=== PATIENT | female | born 1965 | race Two or more races ===

== ENCOUNTER → 2020-09-08 12:22 | Outpatient (BNVA) | payer MEDICAID, SELFPAY | PROVIDERS: PCP Internal Medicine; Visit Provider Internal Medicine Cardiovascular Disease | DX: I10 Essential (primary) hypertension (principal); R07.9 Chest pain, unspecified; R00.2 Palpitations | CPT/HCPCS: 99212 ==

== ENCOUNTER → 2021-02-28 09:22 | Outpatient (BNVA) | payer MEDICAID, SELFPAY | PROVIDERS: PCP Internal Medicine; Referring Provider Internal Medicine; Visit Provider Internal Medicine Cardiovascular Disease | DX: I10 Essential (primary) hypertension (principal); R00.2 Palpitations; Z79.899 Other long term (current) drug therapy | CPT/HCPCS: 99212 ==

== ENCOUNTER 2021-07-09 10:27 | Outpatient (REF) | payer MEDICAID, SELFPAY ==
--- NOTE | ~2021-07-09 | MM_ITS ---
EXAMINATION: MM SCREENING DIGITAL BREAST TOMOSYNTHESIS, BILATERAL CLINICAL INFORMATION: Screening. Asymptomatic. The lifetime risk of breast cancer based on the Tyrer-Cuzick Model is 8%. COMPARISON: Mammography: 05/18/2020, 01/02/2019, 12/18/2018; outside mammography 08/04/2016 ([facility]) TECHNIQUE: Digital breast tomosynthesis is performed in both the craniocaudal and mediolateral oblique views along with computer-aided detection (CAD). Synthesized 2D images are generated from the tomosynthesis. FINDINGS: There are scattered areas of fibroglandular density (ACR BI-RADS breast composition Category b). There are no significant masses, abnormal calcifications, or other abnormalities. Breast tissue composition borders on average fibroglandular. Denser tissue composition is predominantly in the anterior upper outer quadrants. The axilla and skin contours are unremarkable. No significant changes. MM/MM tomosynthesis screening BI IMPRESSION: No mammographic evidence of malignancy. ASSESSMENT: BI-RADS 1: Negative RECOMMENDATION: Routine annual mammography screening. This patient's information was entered into a reminder system with a target due date for their next mammogram.
== END 2021-07-09 10:28 | disposition home or self-care (01) ==
LOC: HO.MAMMO 10:27
PROVIDERS: Visit Provider Internal Medicine
DX: Z12.31 Encounter for screening mammogram for malignant neoplasm of breast (principal)
CPT/HCPCS: 77063; 77067

== ENCOUNTER → 2021-09-05 09:33 | Outpatient (BNVA) | payer MEDICAID, SELFPAY | PROVIDERS: PCP Internal Medicine; Referring Provider Internal Medicine; Visit Provider Internal Medicine Cardiovascular Disease | DX: R00.2 Palpitations (principal); R07.9 Chest pain, unspecified; I10 Essential (primary) hypertension | CPT/HCPCS: 99212 ==

== ENCOUNTER → 2021-09-15 09:22 | Outpatient (BNVA) | payer MEDICAID, SELFPAY | PROVIDERS: PCP Internal Medicine; Referring Provider Internal Medicine; Visit Provider Surgery | DX: K64.4 Residual hemorrhoidal skin tags (principal); K64.8 Other hemorrhoids | CPT/HCPCS: 46600; 99202 ==

== ENCOUNTER 2021-10-21 05:58 | Day surgery (SDC) | payer MEDICAID, SELFPAY ==
[2021-10-17 10:41] VITALS: BMI 26.0
[2021-10-17 12:53] VITALS: BMI 25.4
--- NOTE | 2021-10-20 10:30 | P.CONAN_ITS ---
Documented by User: Zee Shoemaker NP 10/20/21 10:32 HPI - Anesthesia Eval Consult details Narrative: 56yo F for EUA, Hemorrhoidectomy PMFSH Active Problems Active Problems: All Active Problems (Updated 10/17/21 @ 12:52 by Elmira Posadas, RN) Chest pain (Acute) Palpitations (Acute) Hemorrhoids with complication (Acute) Hypertension (Acute) Past Medical History Medical History Cough, unspecified Hemorrhoids with complication Hypertension Family History Family History Father HTN (hypertension) Mother Tachycardia Surgical History Surgical History History of bariatric surgery History of partial hysterectomy History of tubal ligation Social History Social History Are you a primary rn complex care to a significant other at home: No Do you presently have visiting nurse or other home services: No Patient Tobacco Use Status: Former Tobacco user Quit Date: 2019 Tobacco use type: Cigarette Use of substances other than those prescribed or required for medical reasons: No Are you DNR?: No Advance Directives: No Advance Directives Information Provided: Yes Advance Directives on File: No Meds Allergies Allergy/AdvReac Type Severity Reaction Status Date / Time No Known Allergies Allergy Verified 10/17/21 12:53 [No Known Allergies*] Home Medications Medication Instructions Recorded Confirmed Last Taken Type albuterol sulfate 2 puff 09/08/20 10/17/21 Unknown History 90 mcg/actuation INHALATION Q6H PRN aerosol inhaler amitriptyline 25 25 mg PO QAM 09/08/20 10/17/21 Unknown History mg tablet chlorthalidone 50 50 mg PO DAILY 09/08/20 10/17/21 Unknown History mg tablet fluticasone 1 puff 09/08/20 10/17/21 Unknown History propionate 110 INHALATION BID mcg/actuation HFA aerosol inhaler (Flovent HFA) sertraline 50 mg 50 mg PO DAILY 09/08/20 10/17/21 Unknown History tablet witch lea 50 % 1 pad TOPICAL 09/08/20 09/15/21 Unknown History topical pads BID-QID PRN (Preparation H (Witch Lea)) zolpidem 10 mg 10 mg PO BEDTIME 09/08/20 10/17/21 Unknown History tablet PRN amitriptyline 10 10 mg PO BEDTIME 09/15/21 10/17/21 Unknown History mg tablet butalbital-acetam 1 tab PO Q4H PRN 09/15/21 10/17/21 Unknown History inophen-caffeine 50 mg-325 mg-40 mg tablet cholecalciferol 50 mcg PO DAILY 09/15/21 10/17/21 Unknown History (vitamin D3) 50 mcg (2,000 unit) capsule conjugated 0.625 mg PO 09/15/21 10/17/21 Unknown History estrogens 0.625 DAILY mg tablet (Premarin) divalproex 250 mg 500 mg PO BID 09/15/21 10/17/21 Unknown History tablet,extended release 24 hr hydrochlorothiazi 50 mg PO DAILY 09/15/21 10/17/21 Unknown History de 50 mg tablet ibuprofen 800 mg 800 mg PO TID 09/15/21 10/17/21 Unknown History tablet PRN melatonin 5 mg 5 - 10 mg PO 09/15/21 10/17/21 Unknown History tablet BEDTIME PRN polyvinyl alcohol 1 drp OPHTHALMIC 09/15/21 10/17/21 Unknown History 1.4 % eye drops (EYE) TID-QID (Artificial Tears (polyvinyl alcohol)) topiramate 25 mg 25 mg PO DAILY 09/15/21 10/17/21 Unknown History tablet Exam Exam Date and Time: October 20, 2021 1030 Height,Weight and Vital Signs: Height 4 ft 11 in Weight 57.153 kg Assessment and Plan Assessment Anesthesia Assessment: Chart Reviewed Documented by User: Rayne Nieto MD 10/21/21 07:46 [facility] Past Medical History Medical History Cough, unspecified Hemorrhoids with complication Hypertension Family History Family History Father HTN (hypertension) Mother Tachycardia Surgical History Surgical History History of bariatric surgery History of partial hysterectomy History of tubal ligation History of Problems with Anesthesia: No Social History Social History Are you a primary rn complex care to a significant other at home: No Do you presently have visiting nurse or other home services: No Patient Tobacco Use Status: Former Tobacco user Quit Date: 2019 Tobacco use type: Cigarette Use of substances other than those prescribed or required for medical reasons: No Are you DNR?: No Advance Directives: No Advance Directives Information Provided: Yes Advance Directives on File: No Meds Allergies Allergy/AdvReac Type Severity Reaction Status Date / Time No Known Allergies Allergy Verified 10/17/21 12:53 [No Known Allergies*] Home Medications Medication Instructions Recorded Confirmed Last Taken Type albuterol sulfate 2 puff 09/08/20 10/17/21 Unknown History 90 mcg/actuation INHALATION Q6H PRN aerosol inhaler amitriptyline 25 25 mg PO QAM 09/08/20 10/17/21 Unknown History mg tablet chlorthalidone 50 50 mg PO DAILY 09/08/20 10/17/21 Unknown History mg tablet fluticasone 1 puff 09/08/20 10/17/21 Unknown History propionate 110 INHALATION BID mcg/actuation HFA aerosol inhaler (Flovent HFA) sertraline 50 mg 50 mg PO DAILY 09/08/20 10/17/21 Unknown History tablet witch lea 50 % 1 pad TOPICAL 09/08/20 09/15/21 Unknown History topical pads BID-QID PRN (Preparation H (Witch Lea)) zolpidem 10 mg 10 mg PO BEDTIME 09/08/20 10/17/21 Unknown History tablet PRN amitriptyline 10 10 mg PO BEDTIME 09/15/21 10/17/21 Unknown History mg tablet butalbital-acetam 1 tab PO Q4H PRN 09/15/21 10/17/21 Unknown History inophen-caffeine 50 mg-325 mg-40 mg tablet cholecalciferol 50 mcg PO DAILY 09/15/21 10/17/21 Unknown History (vitamin D3) 50 mcg (2,000 unit) capsule conjugated 0.625 mg PO 09/15/21 10/17/21 Unknown History estrogens 0.625 DAILY mg tablet (Premarin) divalproex 250 mg 500 mg PO BID 09/15/21 10/17/21 Unknown History tablet,extended release 24 hr hydrochlorothiazi 50 mg PO DAILY 09/15/21 10/17/21 Unknown History de 50 mg tablet ibuprofen 800 mg 800 mg PO TID 09/15/21 10/17/21 Unknown History tablet PRN melatonin 5 mg 5 - 10 mg PO 09/15/21 10/17/21 Unknown History tablet BEDTIME PRN polyvinyl alcohol 1 drp OPHTHALMIC 09/15/21 10/17/21 Unknown History 1.4 % eye drops (EYE) TID-QID (Artificial Tears (polyvinyl alcohol)) topiramate 25 mg 25 mg PO DAILY 09/15/21 10/17/21 Unknown History tablet Exam Airway Mallampati Class: I TM Dist: >3cm Neck ROM: Full Loose/Missing/Broken Teeth: No Heart: RRR Lungs: CTA Assessment and Plan Assessment Anesthesia Assessment: Anesthesia Plan Discussed Final Anesthetic Review History of Problems with Anesthesia: No NPO: Yes ASA Class: II Final Preanesthetic Review: Meds/Allgs Chart Reviewed, Consent Obtained/Reviewed and Anes Risks/Benef Reviewed Patient Risk: Low Procedure Risk: Intermediate Anesthetic Plan Anesthetic Plan: GA Disposition: Standard PACU
--- NOTE | 2021-10-20 10:30 | HO.ANESPROP2 ---
Documented by User: Zee Shoemaker NP 10/20/21 10:32 HPI - Anesthesia Eval Consult details Narrative: 56yo F for EUA, Hemorrhoidectomy PMFSH Active Problems Active Problems: All Active Problems (Updated 10/17/21 @ 12:52 by Elmira Posadas, RN) Chest pain (Acute) Palpitations (Acute) Hemorrhoids with complication (Acute) Hypertension (Acute) Past Medical History Medical History Cough, unspecified Hemorrhoids with complication Hypertension Family History Family History Father HTN (hypertension) Mother Tachycardia Surgical History Surgical History History of bariatric surgery History of partial hysterectomy History of tubal ligation Social History Social History Are you a primary progressive care unit registered nurse to a significant other at home: No Do you presently have visiting nurse or other home services: No Patient Tobacco Use Status: Former Tobacco user Quit Date: 2019 Tobacco use type: Cigarette Use of substances other than those prescribed or required for medical reasons: No Are you DNR?: No Advance Directives: No Advance Directives Information Provided: Yes Advance Directives on File: No Meds Allergies Allergy/AdvReac Type Severity Reaction Status Date / Time No Known Allergies Allergy Verified 10/17/21 12:53 [No Known Allergies*] Home Medications Medication Instructions Recorded Confirmed Last Taken Type albuterol sulfate 90 mcg/actuation 2 puff INHALATION Q6H PRN 09/08/20 10/17/21 Unknown History aerosol inhaler amitriptyline 25 mg tablet 25 mg PO QAM 09/08/20 10/17/21 Unknown History chlorthalidone 50 mg tablet 50 mg PO DAILY 09/08/20 10/17/21 Unknown History fluticasone propionate 110 1 puff INHALATION BID 09/08/20 10/17/21 Unknown History mcg/actuation HFA aerosol inhaler (Flovent HFA) sertraline 50 mg tablet 50 mg PO DAILY 09/08/20 10/17/21 Unknown History witch lea 50 % topical pads 1 pad TOPICAL BID-QID PRN 09/08/20 09/15/21 Unknown History (Preparation H (Witch Lea)) zolpidem 10 mg tablet 10 mg PO BEDTIME PRN 09/08/20 10/17/21 Unknown History amitriptyline 10 mg tablet 10 mg PO BEDTIME 09/15/21 10/17/21 Unknown History dpqzvtotsi-jaxgqnuwpzmpg-opzcsrqb 1 tab PO Q4H PRN 09/15/21 10/17/21 Unknown History 50 mg-325 mg-40 mg tablet cholecalciferol (vitamin D3) 50 50 mcg PO DAILY 09/15/21 10/17/21 Unknown History mcg (2,000 unit) capsule conjugated estrogens 0.625 mg 0.625 mg PO DAILY 09/15/21 10/17/21 Unknown History tablet (Premarin) divalproex 250 mg tablet,extended 500 mg PO BID 09/15/21 10/17/21 Unknown History release 24 hr hydrochlorothiazide 50 mg tablet 50 mg PO DAILY 09/15/21 10/17/21 Unknown History ibuprofen 800 mg tablet 800 mg PO TID PRN 09/15/21 10/17/21 Unknown History melatonin 5 mg tablet 5 - 10 mg PO BEDTIME PRN 09/15/21 10/17/21 Unknown History polyvinyl alcohol 1.4 % eye drops 1 drp OPHTHALMIC (EYE) TID-QID 09/15/21 10/17/21 Unknown History (Artificial Tears (polyvinyl alcohol)) topiramate 25 mg tablet 25 mg PO DAILY 09/15/21 10/17/21 Unknown History Exam Exam Date and Time: October 20, 2021 1030 Height,Weight and Vital Signs: Height 4 ft 11 in Weight 57.153 kg Assessment and Plan Assessment Anesthesia Assessment: Chart Reviewed Documented by User: Rayne Nieto MD 10/21/21 07:46 [facility] Past Medical History Medical History Cough, unspecified Hemorrhoids with complication Hypertension Family History Family History Father HTN (hypertension) Mother Tachycardia Surgical History Surgical History History of bariatric surgery History of partial hysterectomy History of tubal ligation History of Problems with Anesthesia: No Social History Social History Are you a primary progressive care unit registered nurse to a significant other at home: No Do you presently have visiting nurse or other home services: No Patient Tobacco Use Status: Former Tobacco user Quit Date: 2019 Tobacco use type: Cigarette Use of substances other than those prescribed or required for medical reasons: No Are you DNR?: No Advance Directives: No Advance Directives Information Provided: Yes Advance Directives on File: No Meds Allergies Allergy/AdvReac Type Severity Reaction Status Date / Time No Known Allergies Allergy Verified 10/17/21 12:53 [No Known Allergies*] Home Medications Medication Instructions Recorded Confirmed Last Taken Type albuterol sulfate 90 mcg/actuation 2 puff INHALATION Q6H PRN 09/08/20 10/17/21 Unknown History aerosol inhaler amitriptyline 25 mg tablet 25 mg PO QAM 09/08/20 10/17/21 Unknown History chlorthalidone 50 mg tablet 50 mg PO DAILY 09/08/20 10/17/21 Unknown History fluticasone propionate 110 1 puff INHALATION BID 09/08/20 10/17/21 Unknown History mcg/actuation HFA aerosol inhaler (Flovent HFA) sertraline 50 mg tablet 50 mg PO DAILY 09/08/20 10/17/21 Unknown History witch lea 50 % topical pads 1 pad TOPICAL BID-QID PRN 09/08/20 09/15/21 Unknown History (Preparation H (Witch Lea)) zolpidem 10 mg tablet 10 mg PO BEDTIME PRN 09/08/20 10/17/21 Unknown History amitriptyline 10 mg tablet 10 mg PO BEDTIME 09/15/21 10/17/21 Unknown History nglhcgydpc-jewykrlzaiomd-bfqeobvn 1 tab PO Q4H PRN 09/15/21 10/17/21 Unknown History 50 mg-325 mg-40 mg tablet cholecalciferol (vitamin D3) 50 50 mcg PO DAILY 09/15/21 10/17/21 Unknown History mcg (2,000 unit) capsule conjugated estrogens 0.625 mg 0.625 mg PO DAILY 09/15/21 10/17/21 Unknown History tablet (Premarin) divalproex 250 mg tablet,extended 500 mg PO BID 09/15/21 10/17/21 Unknown History release 24 hr hydrochlorothiazide 50 mg tablet 50 mg PO DAILY 09/15/21 10/17/21 Unknown History ibuprofen 800 mg tablet 800 mg PO TID PRN 09/15/21 10/17/21 Unknown History melatonin 5 mg tablet 5 - 10 mg PO BEDTIME PRN 09/15/21 10/17/21 Unknown History polyvinyl alcohol 1.4 % eye drops 1 drp OPHTHALMIC (EYE) TID-QID 09/15/21 10/17/21 Unknown History (Artificial Tears (polyvinyl alcohol)) topiramate 25 mg tablet 25 mg PO DAILY 09/15/21 10/17/21 Unknown History Exam Airway Mallampati Class: I TM Dist: >3cm Neck ROM: Full Loose/Missing/Broken Teeth: No Heart: RRR Lungs: CTA Assessment and Plan Assessment Anesthesia Assessment: Anesthesia Plan Discussed Final Anesthetic Review History of Problems with Anesthesia: No NPO: Yes ASA Class: II Final Preanesthetic Review: Meds/Allgs Chart Reviewed, Consent Obtained/Reviewed and Anes Risks/Benef Reviewed Patient Risk: Low Procedure Risk: Intermediate Anesthetic Plan Anesthetic Plan: GA Disposition: Standard PACU
[2021-10-21 06:41] VITALS: BP 126/57; PULSE 54; RESP 16; TEMP 36.7; O2SAT 100
[2021-10-21] MEDS: Lactated Ringers 1,000 ML 100 ML IVCONT (06:42)
--- NOTE | 2021-10-21 07:22 | P.HPSUR_ITS ---
Pre-Procedural Eval Section A Date of Service: 10/21/21 Section B Chief Complaint: Hemorrhoids with complication Details of Present Illness: has had pain and bleeding with hemorrhoids for years Relevant Family History (Specify if Yes): No Relevant Social History: None Present Medications: see Short Stay Collaborative assessment Medical History: Significant History (HTN, palipitations) History of Previous Operations: No relevant previous surgery Allergies: Allergies Allergy/AdvReac Type Severity Reaction Status Date / Time No Known Allergies Allergy Verified 10/17/21 12:53 [No Known Allergies*] Review of Systems Sugical H&P ROS: Negative: Constitution, Cardiovascular, Respiratory, Neurological, Psychiatric, Hem-Onc, Allergic/Immunologic, Gastrointestinal, Genitourinary, Musculoskeletal, Integumentary, Endocrine and Eye s/Ears/Nose/Throat Exam Surgical H&P Exam: Normal: HEENT, Normal: Heart, Normal: Lungs, Normal: Extremities, Normal: Abdomen, Normal: Skin and Normal: Neurological Plan Diagnosis/Plan: Unchanged I have reviewed the history and physical and performed a pertinent physical examination on my patient. No changes have occurred unless specified.
--- NOTE | 2021-10-21 08:15 | W.PM.OPN ---
Operative Note Operative Note Date of Service: 10/21/21 Narrative: Preop diagnosis: Internal and external hemorrhoids with pain and bleeding Postop diagnosis: the same Procedure: Exam under anesthesia, hemorrhoidectomy x2 columns Surgeon: Trav Hale MD The patient is a 56-year-old female who says he has had longstanding problems with her hemorrhoids including pain , frequent swelling and frequent bleeding. She wanted to proceed with hemorrhoidectomy. She understood the technique of the procedure. She was aware of the risks, benefits, and alternatives. She was brought to the Operating room and placed in prone mary-knife position under general anesthesia via endotracheal tube. The buttocks were retracted with wide tape laterally. The perianal area was prepped and draped in the usual sterile fashion. A surgical time-out was done Patient received Cefotan 2 g IV preoperatively. I infiltrated the perianal area with lidocaine 1%.Examination of the perianal area revealed prominent external hemorrhoids, on the right and on the left side. I inserted the Yane Darling retractor and examined the anal canal circumferentially. Again this mixed hemorrhoidal columns of internal external were seen. There was a moderate-sized mixed column on the right and as well as on the left I applied a Carmona grasper at the hemorrhoidal column on the left side to retract this. I made a plkjmo-gn-dqyfb stitch using chromic 3-0 its pedicle past the dentate line. I made an incision around this hemorrhoidal column to the perianal skin using blade 15. And excised this hemorrhoid dull column above the plane of the sphincters along this incision using a Metzenbaum scissors. I closed this incision with a running chromic 3-0 stitch Additional hemostatic vsjquy-as-eqeqa sutures were placed . I proceeded to then a Carmona grasper at the hemorrhoidal column on the right. I made a lojrzn-og-exkfo stitch at the pedicle using chromic 3-0. I made an incision around this hemorrhoidal column to the perianal skin using blade 15 and excised this above the plane of sphincters using scissors. I closed this incision with a running chromic 3-0 stitch. Additional hemostatic kbhdfv-nz-onabm sutures were placed Once hemostasis was ensured, I infiltrated the perianal area with Marcaine 0.5% for postop analgesia. Procedures when completed The patient tolerated procedure well. There were no complications noted. Initial and final counts of sponges and instruments were correct. Estimated blood loss wasabout 30 cc. The patient was extubated without difficulty and transferred to recovery room with stable vital signs. .
[2021-10-21 08:25] VITALS: BP 130/75; PULSE 68; RESP 16; TEMP 36.4; O2SAT 97
[2021-10-21 08:30] VITALS: BP 145/75; PULSE 52; RESP 18; O2SAT 99
[2021-10-21 08:35] VITALS: BP 164/85; PULSE 55; RESP 16; O2SAT 98
[2021-10-21 08:40] VITALS: BP 147/57; PULSE 48; RESP 16; O2SAT 99
[2021-10-21 08:55] VITALS: BP 164/90; PULSE 48; RESP 16; O2SAT 99
[2021-10-21] MEDS: oxyCODONE HCl Immed Release 5 MG TABLET PO (09:09)
== END 2021-10-21 09:40 | disposition home or self-care (01) ==
PROVIDERS: PCP Internal Medicine; Visit Provider Surgery
PROC: (CPT 46260; principal; 2021-10-21 07:30)
DX: K64.8 Other hemorrhoids (principal); K64.4 Residual hemorrhoidal skin tags; I10 Essential (primary) hypertension; Z79.899 Other long term (current) drug therapy; Z98.84 Bariatric surgery status; Z87.891 Personal history of nicotine dependence
CPT/HCPCS: 46260; 88304; J1100; J1885; J2250; J2405; J3010

== ENCOUNTER → 2021-11-02 09:57 | Outpatient (BNVA) | payer MEDICAID, SELFPAY | PROVIDERS: PCP Internal Medicine; Referring Provider Internal Medicine; Visit Provider Surgery | DX: Z48.815 Encounter for surgical aftercare following surgery on the digestive system (principal); Z87.19 Personal history of other diseases of the digestive system | CPT/HCPCS: 99212 ==

== ENCOUNTER 2022-03-22 09:15 | Outpatient (REF) | payer MEDICAID, SELFPAY ==
--- NOTE | ~2022-03-22 | XR_ITS ---
EXAMINATION: XR KNEE, RIGHT CLINICAL INFORMATION: Pain COMPARISON: None TECHNIQUE: Four views of the right knee. FINDINGS: Bone alignment is normal. No fracture or dislocation is seen. There is a bipartite patella. There are small osteophytes at the bilateral femoral tibial and patellofemoral joints. There is no joint effusion. XR/XR knee RT 4V IMPRESSION: Mild degenerative changes.
== END 2022-03-22 09:16 | disposition home or self-care (01) ==
LOC: HO.XRAY 09:15
PROVIDERS: PCP Internal Medicine; Visit Provider Internal Medicine
DX: M25.561 Pain in right knee (principal)
CPT/HCPCS: 73564

== ENCOUNTER → 2022-03-30 11:57 | Outpatient (BNVA) | payer MEDICAID, SELFPAY | PROVIDERS: PCP Internal Medicine; Referring Provider Internal Medicine; Visit Provider Internal Medicine Cardiovascular Disease | DX: J32.9 Chronic sinusitis, unspecified (principal); R00.2 Palpitations | CPT/HCPCS: 93005; 99212 ==

== ENCOUNTER 2022-07-13 09:43 | Outpatient (REF) | payer MEDICAID, SELFPAY ==
--- NOTE | ~2022-07-13 | MM_ITS ---
EXAMINATION: MM SCREENING DIGITAL BREAST TOMOSYNTHESIS, BILATERAL CLINICAL INFORMATION: Screening. Asymptomatic. The lifetime risk of breast cancer based on the Tyrer-Cuzick Model is 11%. COMPARISON: Mammography: and studies dating back to 03/07/2014. TECHNIQUE: Digital breast tomosynthesis is performed in both the craniocaudal and mediolateral oblique views along with computer-aided detection (CAD). Synthesized 2D images are generated from the tomosynthesis. FINDINGS: The breasts are heterogeneously dense, which may obscure small masses (ACR BI-RADS breast composition Category c). There is a stable parenchymal pattern within the right breast with no new abnormal dominant mass or suspicious grouping of microcalcifications. Within the deep lateral aspect of the left breast on craniocaudal view there is a new oval density measuring approximately 8 x 6 mm in size and lying approximately 7 cm from the nipple for which spot compression view and possible ultrasound is recommended. MM/MM tomosynthesis screening BI IMPRESSION: Left breast density for further evaluation. ASSESSMENT: BI-RADS 0: Incomplete - Need Additional Imaging Evaluation RECOMMENDATION: 1. Additional views of the left breast. 2. Targeted ultrasound if warranted after review of the additional views. 3. Radiology department staff will contact the patient for additional imaging. This patient's information was entered into a reminder system with a target due date for their next mammogram.
== END 2022-07-13 09:44 | disposition home or self-care (01) ==
LOC: HO.MAMMO 09:43
PROVIDERS: PCP Internal Medicine; Visit Provider Internal Medicine
DX: Z12.31 Encounter for screening mammogram for malignant neoplasm of breast (principal)
CPT/HCPCS: 77063; 77067

== ENCOUNTER 2022-07-26 14:07 | Outpatient (REF) | payer MEDICAID, SELFPAY ==
--- NOTE | ~2022-07-26 | MM_ITS ---
EXAMINATION: MM DIAGNOSTIC DIGITAL BREAST TOMOSYNTHESIS, LEFT US TARGETED BREAST, LEFT CLINICAL INFORMATION: Left breast density on mammography of 07/13/2022 lateral aspect. COMPARISON: Mammography: 07/13/2022 and studies dating back to 04/06/2014. TECHNIQUE: Digital breast tomosynthesis is performed. 2D images are generated from the tomosynthesis. The following views are obtained: Spot compression 90 degree mediolateral and craniocaudal views of the left breast. Targeted left breast ultrasound. FINDINGS: There are scattered areas of fibroglandular density (ACR BI-RADS breast composition Category b). On craniocaudal view there is a question of a persistent 1.0 x 0.9 cm density approximately 3 o'clock position. No suspicious solid mass or region of abnormal distal sound shadowing was appreciated. At the 1 o'clock position of the left breast 4 cm from the nipple there is a 7 x 2 x 8 mm simple cyst. At the 3 o'clock position approximately 5 cm nipple there is a 1.0 x 0.9 x 0.2 cm simple cyst. Both are anechoic with smooth back goodson and no internal vascularity and have distal sound enhancement. Results are discussed with the patient at time of visit. MM/MM tomosynthesis added views L IMPRESSION: Left breast abnormality corresponds to a simple cyst. ASSESSMENT: BI-RADS 2: Benign RECOMMENDATION: Routine annual mammography screening. This patient's information was entered into a reminder system with a target due date for their next mammogram.
== END 2022-07-26 14:08 | disposition home or self-care (01) ==
LOC: HO.MAMMO 14:07
PROVIDERS: PCP Internal Medicine; Visit Provider Internal Medicine
DX: R92.2 Inconclusive mammogram (principal)
CPT/HCPCS: 76642; 77061; 77065

== ENCOUNTER → 2022-10-09 10:45 | Outpatient (BNVA) | payer MEDICAID, SELFPAY | PROVIDERS: PCP Internal Medicine; Referring Provider Internal Medicine; Visit Provider Internal Medicine Cardiovascular Disease | DX: I10 Essential (primary) hypertension (principal); R00.2 Palpitations | CPT/HCPCS: 99212 ==

== ENCOUNTER 2023-05-04 11:23 | Outpatient (REF) | payer MEDICAID, SELFPAY ==
[2023-05-04 13:03] LABS: MANUAL DIFF FLAG NO
[2023-05-04 13:32] LABS: Basophils Percent Auto 0.4 % (0-2); Eosinophils Absolute Auto 0.1 X10*3/uL (0.0-0.4); Eosinophils Percent Auto 1.5 % (0-4); Hemoglobin 12.4 g/dl (12.0-16.0); Imm Gran Abs Auto 0.01 X10*3/uL (0.00-0.03); Imm Gran Pct Auto 0.1 % (0.0-0.4); Lymphocytes Percent Auto 41.7 % (20-40); Mean Corpuscular HGB Conc 32.6 g/dl (31.0-35.0); Mean Corpuscular Hemoglobin 30.9 pg (27.0-33.0); Mean Corpuscular Volume 94.8 fL (80.0-98.0); Monocytes Absolute Auto 0.4 X10*3/uL (0.1-1.2); Monocytes Percent Auto 5.1 % (2-11); Neutrophils Absolute Auto 3.6 x10*3/uL (2.0-8.3); Neutrophils Percent Auto 51.2 % (45-73); Platelet Count 207 X10*3/uL (160-400); Red Blood Count 4.01 X10*6/uL (4.20-5.50); Red Cell Distribution Width 12.9 % (11.0-16.0); White Blood Count 7.1 X10*3/uL (4.8-10.8)
[2023-05-04 13:56] LABS: Alanine Aminotransferase 7 U/L (0-31); Albumin Level 3.8 g/dL (3.5-5.0); Alkaline Phosphatase 83 U/L (39-117); Anion Gap 13 (12-20); Aspartate Amino Transferase 11 U/L (5-31); Bilirubin Direct < 0.2 mg/dL (0.0-0.5); Bilirubin Total 0.2 mg/dL (0.0-1.0); Blood Urea Nitrogen 11 mg/dL (9-16); Calcium 9.9 mg/dL (8.4-10.2); Carbon Dioxide 26 mmol/L (22-29); Chloride 108 mmol/L (96-108); Cholesterol 183 mg/dL; Estimated Glomerular Filt Rate > 60; Glucose Random 84 mg/dL (60-115); HDL Cholesterol 70 mg/dL; LDL Cholesterol Calculated 96 mg/dl; Potassium 4.5 mmol/L (3.3-5.1); Sodium 142 mmol/L (135-145); Total Protein 6.5 g/dL (6.5-8.0); Triglycerides 89 mg/dL
[2023-05-04 13:57] LABS: TSH reflex Free T4 1.26 uIU/mL (0.32-4.0)
[2023-05-05 04:22] LABS: HBc Num1 0.09 S/CO (0.00-0.79); HBsAGNum1 0.35 S/CO (0.00-0.99); Hepatitis A Antibody IgM 0.15 Index (0-0.79); Hepatitis B Core Antibody Nonreactive (Nonreactive); Hepatitis B Surface Antigen Negative (Negative); ~HepC Num1 0.05 S/CO (0.00-0.79); ~Hepatitis A Antibody IgM Nonreactive (Nonreactive); ~Hepatitis B Surface Antibody REACTIVE (Nonreactive); ~Hepatitis C Antibody Nonreactive (Nonreactive)
[2023-05-07 16:44] LABS: TS Negative Control Passed; TS Panel A 0; TS Panel B 0; TS Positive Control Passed; TSpotTB Negative (Negative)
[2023-05-07 17:23] LABS: Rubella IgG Antibody 1.38 Index; Rubeola IgG (Measles) >300.00 AU/mL
== END 2023-05-04 11:24 | disposition home or self-care (01) ==
LOC: HO.HHCL 11:23
PROVIDERS: Visit Provider Internal Medicine
DX: Z00.00 Encounter for general adult medical examination without abnormal findings (principal); Z11.1 Encounter for screening for respiratory tuberculosis
CPT/HCPCS: 36415; 80048; 80061; 80076; 84443; 85025; 86481; 86704; 86706; 86709; 86735; 86762; 86765; 86803; 87340

== ENCOUNTER 2023-05-16 08:46 | Outpatient (REF) | payer MEDICAID, SELFPAY | END 2023-05-16 08:47 | disposition home or self-care (01) | LOC: HO.HHCL 08:46 | PROVIDERS: Visit Provider Nurse Practitioner Family | DX: F31.81 Bipolar II disorder (principal) | CPT/HCPCS: 36415; 80164 ==

== ENCOUNTER 2023-07-19 09:18 | Outpatient (REF) | payer MEDICAID, SELFPAY | END 2023-07-19 09:19 | disposition home or self-care (01) | LOC: HO.MAMMO 09:18 | PROVIDERS: PCP Internal Medicine; Visit Provider Internal Medicine | DX: Z12.31 Encounter for screening mammogram for malignant neoplasm of breast (principal) | CPT/HCPCS: 77063; 77067 ==

== ENCOUNTER → 2023-07-19 10:00 | Outpatient (BNV) | payer MEDICAID, SELFPAY | PROVIDERS: PCP Internal Medicine; Visit Provider Radiology Diagnostic Radiology | DX: Z12.31 Encounter for screening mammogram for malignant neoplasm of breast (principal) | CPT/HCPCS: 77063; 77067 ==

== ENCOUNTER 2023-10-16 13:39 | Outpatient (AMB) | payer MEDICAID, SELFPAY ==
[2023-10-16 14:08] VITALS: BP 130/70; PULSE 68; BMI 27.6
--- NOTE | 2023-10-16 14:08 | MHC.OFFVIS ---
Intake Vital Signs 10/16/23 14:08 Height 4 ft 11 in Weight 136 lb 10.986 oz BMI 27.6 BP 130/70 Blood Pressure Location Lt brachial Position Sitting Pulse 68 Intake Visit Reasons: 1 yr f/up Intake Note: 1 yr f/up pt its feeling fine. 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 Accompanied by: Self / Same As Patient Allergies No Known Allergies [No Known Allergies*] Allergy (Verified 10/16/23 14:29) Medication List - Last Reconciled 10/16/23 by Monika Nixon NP albuterol sulfate 90 mcg/actuation 2 puffs inhalation Q6H PRN amitriptyline 25 mg PO QAM amitriptyline 10 mg PO BEDTIME carvedilol 6.25 mg PO BID cholecalciferol (vitamin D3) 50 mcg PO DAILY conjugated estrogens (Premarin) 0.625 mg PO DAILY divalproex ER 500 mg PO BID docusate sodium (Colace) 100 mg PO BID fluticasone propionate 110 mcg/actuation (Flovent HFA) 1 puff inhalation BID hydrochlorothiazide 50 mg PO DAILY ibuprofen 800 mg PO TID PRN lisinopril 10 mg PO DAILY melatonin 5 - 10 mg PO BEDTIME PRN oxycodone 5 mg PO Q4H PRN polyvinyl alcohol 1.4% (Artificial Tears (polyvinyl alcohol)) 1 drp ophthalmic (eye) TID-QID sertraline 50 mg PO DAILY topiramate 25 mg PO DAILY witch lea 50% (Preparation H (Witch Lea)) 1 pad topical BID-QID PRN zolpidem 10 mg PO BEDTIME PRN HPI HPI Comments History of Present Illness Details 58-year-old female presents today for a one year follow-up. She reports she gets some fast feeling heart rates and squeezing in her chest at rest. She also states her PCP added some new blood pressure medications due to some high blood pressure readings. She reports she has been having some high stress at home and thinks thats why her blood pressure is high but the squeezing in her chest and the palpitations have been ongoing for some time. Otherwise she is doing well. [facility] Medical History Hemorrhoid Cough, unspecified Hemorrhoids with complication Hypertension Surgical History History of hemorrhoidectomy History of partial hysterectomy History of tubal ligation History of bariatric surgery Family History Father HTN (hypertension) Mother Tachycardia Social History Are you a primary director career to a significant other at home: No Do you presently have visiting nurse or other home services: No Alcohol intake: never Comment: pt states tolerable states it is not pain just pressure Patient Tobacco Use Status: Former Tobacco user Quit Date: 2019 Tobacco use type: Cigarette Years Smoked: 40 +/- Review of Systems Const Denies chills, Denies fatigue, Denies fever(s), Denies frequent falls, Denies weakness, Denies weight gain and Denies weight loss ENT Denies dizziness Card Denies chest pain, Denies leg edema, Denies lightheadedness, Denies palpitations, Denies dyspnea and Denies dyspnea on exertion Resp Denies cough, Denies dyspnea and Denies dyspnea on exertion GI Denies hematochezia Musc Denies abnormal gait, Denies muscle weakness, Denies numbness, Denies radiating pain into limb and Denies tingling Neuro Denies abnormal gait, Denies dizziness, Denies frequent falls, Denies numbness, Denies tingling and Denies weakness Endo Denies fatigue and Denies palpitations Physical Exam Vital Signs: Last Vital Signs Pulse 68 10/16/23 14:08 BP 130/70 10/16/23 14:08 BMI result Body Mass Index 27.6 Const General: healthy appearing and no acute distress Orientation/consciousness: patient oriented x3 HEENT Head: Yes normal to inspection Eyes General: appearance normal, both eyes and all related structures Neck Neck: Yes normal visual inspection Chest Chest palpation & inspection: normal inspection of the chest Resp Effort & Inspection: normal respiratory effort Auscultation: clear to auscultation bilaterally Cardio Jugular venous distension: no JVD Palpation: normal PMI Rate: regular rate Rhythm: regular rhythm Heart sounds: S1 normal heart sound present, S2 normal heart sound present, no click, no gallops, no murmurs and no rubs GI Inspection: Yes normal to inspection Palpation (GI): Soft to palpation Skin General skin exam: no rashes or lesions noted Neuro General: patient oriented x3 Extrem General: Yes normal to inspection Psych Appearance: grossly normal Office Procedures EKG Details: EKG today. Normal Sinus Rhythm Ratwe 68 bpm. QTc 382 ms. Cannot rule out Anterior Infarct, age undetermined. [id number], Complete Assessment & Plan Assessment & Plan (1) Chest pain: Code(s): R07.9 - Chest pain, unspecified (2) Palpitations: Code(s): R00.2 - Palpitations (3) Hypertension: Code(s): I10 - Essential (primary) hypertension Plan Blood pressure today is good. She did a stress echo in the past and achieved 10.4 METs without changes. Will repeat due to being over 4 years ago. Will also order a 48 hour holter to assess report of palpitations/fast heart rate. Echocardiogram to assess any changes such as wall motion abnormalitiy. Orders: Orders ECG holter monitor 48 hour Today R00.2 - Palpitations, R07.9 - Chest pain, unspecified CA echo stress exercise w con Today I10 - Essential (primary) hypertension, R00.2 - Palpitations, R07.9 - Chest pain, unspecified CA echo transthoracic complete Today I10 - Essential (primary) hypertension Coding Level of Care Code Est Pt Level 4 (73047) Diagnoses Chest pain R07.9 Palpitations R00.2 Hypertension I10 CPT Codes EKG - CPT: 29792-[id number], Complete ([id number])
== END 2023-10-16 14:44 | disposition home or self-care (01) ==
PROVIDERS: PCP Internal Medicine; Visit Provider Nurse Practitioner
DX: R07.9 Chest pain, unspecified (principal); R00.2 Palpitations; I10 Essential (primary) hypertension
CPT/HCPCS: 93010; 99214

== ENCOUNTER → 2023-10-16 13:39 | Outpatient (BNVA) | payer MEDICAID, SELFPAY | PROVIDERS: PCP Internal Medicine; Visit Provider Nurse Practitioner | DX: R07.9 Chest pain, unspecified (principal); R00.2 Palpitations; I10 Essential (primary) hypertension | CPT/HCPCS: 93005; 99212 ==

== ENCOUNTER → 2023-11-15 12:27 | Outpatient (REF) | payer MEDICAID, SELFPAY ==
--- NOTE | 2023-11-15 12:32 | CA_ITS ---
Transthoracic Echocardiogram Patient (Last, First, Middle): Agnieszka Garg E Gender: Female Date of : 1965 Age: 58 Procedure Date: 11/15/2023 Procedure Type: Transthoracic Echocardiogram Location: OP Height: 149.86 cm Weight: 61.69 kg BSA: 1.57 m2 Heart Rate: 64 bpm BP: 128 / 68 mmHg Em Physician: SB Referring MD: Monika Nixon NP Symptoms: I10 - Essential (primary) hypertension Study Quality: Adequate ECG Rhythm: Sinus Conclusions: - The left ventricular systolic function is normal. The calculated ejection fraction is 68% by biplane method. - No obvious valvular pathology seen on this study. Findings Left Ventricle Normal left ventricular cavity size. There is normal left ventricular wall thickness. The left ventricular systolic function is normal. The calculated ejection fraction is 68% by biplane method. There is no evidence of regional wall motion abnormalities. Diastolic function is normal for age. LV peak GLS -23.3%. Right Ventricle Normal right ventricular cavity size and systolic function. Atria Both atria are normal in size. Aortic Valve There is a normal trileaflet aortic valve. There is no aortic valve stenosis. There is trace (trivial) aortic valve regurgitation. Mitral Valve The mitral valve appears normal. There is no mitral valve regurgitation. There is no mitral valve stenosis. Pulmonic Valve The pulmonic valve is likely normal. Tricuspid Valve Normal tricuspid valve structure. There is mild tricuspid valve regurgitation. There is no evidence of pulmonary hypertension. Great Vessels The asc aorta is normal in size. Small plaque is seen in the sino tubular ridge. Venous The inferior vena cava is normal in size and collapses greater than 50% with inspiration. Pericardium/Pleural There is no evidence of pericardial effusion. Prior Study Comparison No significant change compared to prior study dated: 12/03/2019. Recommendations, Care & Conclusions No obvious valvular pathology seen on this study. Measurements 2D Linear Measurements IVSd: 0.88 0.6-0.9/0.6-1.0 cm LVIDd: 4.79 3.9-5.3/4.2-5.9 cm LVIDd Index: 3.05 2.4-3.2/2.2-3.1 cm/m2 LVIDs: 3.51 2.0-3.6 cm LVPWd: 0.70 0.7-1.1 cm LA Diam: 3.50 2.7-3.8/3.0-4.0 cm LAIDs Index: 2.23 1.5-2.3 cm/m2 LV Mass: 154.01 67-162/88-224 g LV Mass Index: 98.10 43-95/49-115 g/m2 LVOT Diam: 2.00 3.0+(-)1.3 cm 2D Systolic Function EF 4C: 62.40 >55% EF 2C: 72.80 >55% EF BiP: 67.50 >55% Mitral Valve MV Pk E: 0.98 MV PK A: 0.54 MV Decel Time: 171.00 E/A: 1.80 E'Lateral: 13.30 E'Medial: 8.49 E/E' Med: 11.60 E/E' Lat: 7.40 PHT: 50.00 MVA PHT: 4.40 Decel Marshall: 5.73 Aortic Valve AoV Pk Kwaku: 1.54 AoV Pk Grad: 9.00 BERNADINE: 2.50 LVOT LVOT Pk Kwaku: 1.06 LVOT Mn Kwaku: 0.70 LVOT VTI: 0.20 LVOT Pk Grad: 4.00 LVOT Mn Grad: 2.00 LVOT Diam: 2.00 LVOT Area: 3.14 Diastolic Function MV Pk E: 0.98 MV Pk A: 0.54 E/A: 1.80 E'Medial: 8.49 E/E' Med: 11.60 E' Laterial: 13.30 E/E' Lat: 7.40 Right Ventricle TAPSE (mm): 32.60 TVS' Kwaku: 15.30 Tricuspid Valve TR Pk Kwaku: 2.22 TR Pk Grad: 20.00 RA Press: 3.00 RVSP: 23.00 Great Vessels Aorta Sinus of Valsalva: 2.90 2.0-3.5 cm Ao Asc: 3.20 2.1-3.4 cm Pulmonary Veins Pulm Vein S/D 1.20 Pulmonary Valve PV Pk Kwaku: 0.81 Peak PV Grad: 3.00 Updated in Other Vendor System with Status of Final Dale Cee MD electronically signed on 11/16/2023 9:53:59 AM with status of Final
--- NOTE | 2023-11-15 12:32 | HM_ITS ---
Conclusion: 1. Patient was monitored for total period of 2 days 2. Baseline was normal sinus rhythm with average heart rate of 70 beats per minute 3. No significant arrhythmias or pauses noted 4. No patient reported events MTDD
== END ==
LOC: HO.CARD 12:27
PROVIDERS: PCP Internal Medicine; Visit Provider Nurse Practitioner
DX: R07.9 Chest pain, unspecified (principal); R00.2 Palpitations; I10 Essential (primary) hypertension
CPT/HCPCS: 93225; 93306; 93356

== ENCOUNTER → 2023-11-15 12:32 | Outpatient (BNV) | payer MEDICAID, SELFPAY | PROVIDERS: PCP Internal Medicine; Visit Provider Internal Medicine | DX: R07.9 Chest pain, unspecified (principal) | CPT/HCPCS: 93227; 93306 ==

== ENCOUNTER → 2023-11-19 10:21 | Outpatient (REF) | payer MEDICAID, SELFPAY ==
--- NOTE | 2023-11-19 10:24 | CA_ITS ---
Acquisition Time: 2023-11-19 10:54:10 Total Exercise Time: 00:07:21 Test Indications: Palpitations Medications: SEE H Protocol: JALIL Max HR: 142 BPM 87% of Pred: 163 BPM Max BP: 158/078 mmHG Max Work Load: 8.7 METS Exercise stress test exercise 7 min 21 sec of Jalil protocol achieving 88% MPHR, without anginal symptoms, without arrhythmias, with normotensnive response to exericse, without EKG changes. Echo images obtained by Corrupt Lace at rest and immediately post peak exercise. Definity contrast used. Test reviewed with Dr. Singh. Referred By: Monika Nixon Overread By: Monika Nixon
== END ==
LOC: HO.CARD 10:21
PROVIDERS: PCP Internal Medicine; Visit Provider Nurse Practitioner
DX: R07.9 Chest pain, unspecified (principal); R00.2 Palpitations; I10 Essential (primary) hypertension
CPT/HCPCS: 93350; Q9957

== ENCOUNTER 2023-12-05 07:06 | Outpatient (REF) | payer MEDICAID, SELFPAY ==
--- NOTE | ~2023-12-05 | XR_ITS ---
EXAMINATION: XR BILATERAL KNEES CLINICAL INFORMATION: Pain bilateral knees. COMPARISON: Right knee 03/22/2022. TECHNIQUE: 3 views of each knee. FINDINGS: RIGHT KNEE: Trace suprapatellar effusion. [id number] narrowing of the lateral compartment with marginal osteophytes. Redemonstration of a bipartite patella. Small posterior patellar osteophytes. Narrowing of the patellofemoral compartment. LEFT KNEE: Moderate narrowing of the medial compartment with marginal osteophytes. No significant suprapatellar effusion. Mild degenerative changes in the patellofemoral compartment. XR/XR knee RT 3V IMPRESSION: Moderate degenerative changes bilateral knees.
--- NOTE | ~2023-12-05 | XR_ITS ---
EXAMINATION: XR BILATERAL KNEES CLINICAL INFORMATION: Pain bilateral knees. COMPARISON: Right knee 03/22/2022. TECHNIQUE: 3 views of each knee. FINDINGS: RIGHT KNEE: Trace suprapatellar effusion. [id number] narrowing of the lateral compartment with marginal osteophytes. Redemonstration of a bipartite patella. Small posterior patellar osteophytes. Narrowing of the patellofemoral compartment. LEFT KNEE: Moderate narrowing of the medial compartment with marginal osteophytes. No significant suprapatellar effusion. Mild degenerative changes in the patellofemoral compartment. XR/XR knee LT 3V IMPRESSION: Moderate degenerative changes bilateral knees.
== END 2023-12-05 07:07 | disposition home or self-care (01) ==
LOC: HO.HOSX 07:06
PROVIDERS: Visit Provider Orthopaedic Surgery
DX: M25.561 Pain in right knee (principal); M25.562 Pain in left knee
CPT/HCPCS: 73562; 99202

== ENCOUNTER 2023-12-05 10:44 | Outpatient (AMB) | payer MEDICAID, SELFPAY ==
[2023-12-05 11:14] VITALS: BMI 27.5
--- NOTE | 2023-12-05 11:14 | A.OFFVIS_ITS ---
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 The patient describes her pains as sharp in nature. Her symptoms have gotten worse over the last few years in spite of continued non operative treatments. She has tried Tylenol and topical creams which gave her mild relief. She states that both of her knees will give out several times per day. At this point her right knee pain is more severe than is her left. Allergies No Known Allergies [No Known Allergies*] Allergy (Verified 12/05/23 11:23) Medication List - Last Reconciled 12/05/23 by Catalino Dunn MD albuterol sulfate 90 mcg/actuation 2 puffs inhalation Q6H PRN amitriptyline 25 mg PO QAM amitriptyline 10 mg PO BEDTIME carvedilol 6.25 mg PO BID cholecalciferol (vitamin D3) 50 mcg PO DAILY conjugated estrogens (Premarin) 0.625 mg PO DAILY divalproex ER 500 mg PO BID docusate sodium (Colace) 100 mg PO BID fluticasone propionate 110 mcg/actuation (Flovent HFA) 1 puff inhalation BID hydrochlorothiazide 50 mg PO DAILY ibuprofen 800 mg PO TID PRN lisinopril 10 mg PO DAILY melatonin 5 - 10 mg PO BEDTIME PRN oxycodone 5 mg PO Q4H PRN polyvinyl alcohol 1.4% (Artificial Tears (polyvinyl alcohol)) 1 drp ophthalmic (eye) TID-QID sertraline 50 mg PO DAILY topiramate 25 mg PO DAILY witch lea 50% (Preparation H (Witch Lea)) 1 pad topical BID-QID PRN zolpidem 10 mg PO BEDTIME PRN PFSH Medical History Hemorrhoid Cough, unspecified Hemorrhoids with complication Hypertension Surgical History History of hemorrhoidectomy History of partial hysterectomy History of tubal ligation History of bariatric surgery Family History Father HTN (hypertension) Mother Tachycardia Social History (Updated 12/05/23 @ 11:24 by Zuri Rodriguez CMA) Are you a primary post acute care nurse practitioner to a significant other at home: No Do you presently have visiting nurse or other home services: No Alcohol intake: never Comment: pt states tolerable states it is not pain just pressure Patient Tobacco Use Status: Former Tobacco user Quit Date: 2019 Tobacco use type: Cigarette Years Smoked: 40 +/- 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, 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 Physical Exam Vital Signs: BMI result Body Mass Index 27.5 Const Other: Well-nourished well-developed very friendly female awake alert and oriented x3 in no acute distress Extrem Other: Bilateral lower extremity examination shows good capillary refill, no skin lesions noted, normal sensation light touch Bilateral knee examination shows minimal effusions mild crepitus with range of motion, tenderness along her medial and lateral joint lines, positive Shira's test, no instability Results Reviewed Results Reviewed: X-rays of the patient's right knee taken today show moderate joint space narrowing most significant in the lateral compartment, subchondral sclerosis, a bipartite patella, no acute bony abnormalities X-rays of the patient's left knee taken today show mild diffuse joint space narrowing, subchondral sclerosis, no acute bony abnormalities Assessment & Plan Assessment & Plan (1) Right knee pain: Code(s): M25.561 - Pain in right knee (2) Left knee pain: Code(s): M25.562 - Pain in left knee Plan Ms. Garg presents with bilateral knee pains and mechanical symptoms due to early degenerative joint disease as well as possible meniscus tearing. I had a lengthy discussion with the patient regarding the treatment options. She wishes to hold off on cortisone injection for now. Because of the patient's mechanical symptoms I did have her fitted for bilateral knee braces. I feel that the knee braces are a medical necessity to help prevent future falls. The patient will follow up with me on an as-needed basis should her symptoms not plateau at an unacceptable level over the next few months. Feel free to call me at any time should questions regarding her orthopedic management arise. Thank you very much for asking me to see this very friendly patient. I spent 22 minutes in reviewing the patient's records and imaging studies, seeing the patient and documenting in the medical record. Orders: Orders XR knee RT 3V Today M25.561 - Pain in right knee XR knee LT 3V Today M25.562 - Pain in left knee Coding Level of Care Code New Pt Level 2 (46427) Diagnoses Right knee pain M25.561 Left knee pain M25.562
== END 2023-12-05 11:45 | disposition home or self-care (01) ==
PROVIDERS: PCP Internal Medicine; Visit Provider Orthopaedic Surgery
DX: M25.561 Pain in right knee (principal); M25.562 Pain in left knee
CPT/HCPCS: 99202

== ENCOUNTER 2023-12-11 12:47 | Outpatient (AMB) | payer MEDICAID, SELFPAY ==
--- NOTE | 2023-12-11 12:48 | MHC.OFFVIS ---
Intake Vital Signs 12/11/23 12:51 Height 4 ft 11 in Weight 135 lb 5.821 oz BMI 27.3 BP 130/78 Blood Pressure Location Lt brachial Position Sitting Pulse 78 Intake Visit Reasons: 2 mth f/up stress echo/ holter Intake Note: 2 month follow up after stress echo and leonardo PT feels great Allergies No Known Allergies [No Known Allergies*] Allergy (Verified 12/11/23 13:10) Medication List - Last Reconciled 12/11/23 by Monika Nixon NP albuterol sulfate 90 mcg/actuation 2 puffs inhalation Q6H PRN amitriptyline 25 mg PO QAM amitriptyline 10 mg PO BEDTIME atorvastatin 20 mg PO DAILY 90 days carvedilol 6.25 mg PO BID cholecalciferol (vitamin D3) 50 mcg PO DAILY conjugated estrogens (Premarin) 0.625 mg PO DAILY divalproex ER 500 mg PO BID docusate sodium (Colace) 100 mg PO BID fluticasone propionate 110 mcg/actuation (Flovent HFA) 1 puff inhalation BID hydrochlorothiazide 50 mg PO DAILY ibuprofen 800 mg PO TID PRN lisinopril 10 mg PO DAILY melatonin 5 - 10 mg PO BEDTIME PRN oxycodone 5 mg PO Q4H PRN polyvinyl alcohol 1.4% (Artificial Tears (polyvinyl alcohol)) 1 drp ophthalmic (eye) TID-QID sertraline 50 mg PO DAILY topiramate 25 mg PO DAILY witch lea 50% (Preparation H (Witch Lea)) 1 pad topical BID-QID PRN zolpidem 10 mg PO BEDTIME PRN HPI HPI Comments History of Present Illness Details 58-year-old female presents today for a follow-up after testing. She has a history hypertension. At last visit she reports chest pains and palpations. She reports she has gotten chest pains when she was under stress from work recently otherwise she has been doing well. She gets an occasional palpitation. Denies any other symptoms. [facility] Medical History Hemorrhoid Cough, unspecified Hemorrhoids with complication Hypertension Surgical History History of hemorrhoidectomy History of partial hysterectomy History of tubal ligation History of bariatric surgery Family History Father HTN (hypertension) Mother Tachycardia Social History Are you a primary animal care specialist to a significant other at home: No Do you presently have visiting nurse or other home services: No Alcohol intake: never Comment: pt states tolerable states it is not pain just pressure Patient Tobacco Use Status: Former Tobacco user Quit Date: 2019 Tobacco use type: Cigarette Years Smoked: 40 +/- 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, 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 Review of Systems Const Denies weakness ENT Denies dizziness Card Denies chest pain, Denies chest pain with activity, Denies syncope, Denies rapid heart rate, Denies pedal edema, Denies edema, Denies leg edema, Denies lightheadedness, Denies palpitations, Denies dyspnea, Denies dyspnea on exertion and Denies orthopnea Resp Denies cough, Denies dyspnea and Denies dyspnea on exertion GI Denies hematochezia and Denies change in stool character Musc Denies abnormal gait, Denies muscle cramps, Denies muscle weakness, Denies numbness, Denies radiating pain into limb and Denies tingling Neuro Denies abnormal gait, Denies dizziness, Denies syncope, Denies numbness, Denies tingling and Denies weakness Endo Denies palpitations Physical Exam Vital Signs: BMI result Body Mass Index 27.3 Const General: healthy appearing and no acute distress Orientation/consciousness: patient oriented x3 HEENT Head: Yes normal to inspection Eyes General: appearance normal, both eyes and all related structures Neck Neck: Yes normal visual inspection Chest Chest palpation & inspection: normal inspection of the chest Resp Effort & Inspection: normal respiratory effort Auscultation: clear to auscultation bilaterally Cardio Jugular venous distension: no JVD Palpation: normal PMI Rate: regular rate Rhythm: regular rhythm Heart sounds: S1 normal heart sound present, S2 normal heart sound present, no click, no gallops, no murmurs and no rubs GI Inspection: Yes normal to inspection Palpation (GI): Soft to palpation Skin General skin exam: no rashes or lesions noted Neuro General: patient oriented x3 Extrem General: Yes normal to inspection Psych Appearance: grossly normal Results Reviewed Results Reviewed: Stress test: Exercise stress test exercise 7 min 21 sec of Melchor protocol achieving 88% MPHR, without anginal symptoms, without arrhythmias, with normotensnive response to exericse, without EKG changes. Echo images obtained by tech at rest and immediately post peak exercise. Definity contrast used. Test reviewed with Dr. Singh. Exercise stress echocardiogram reviewed. At rest, there is normal LVEF and wall motion. With peak exercise, there is appropriate augmentation of wall thickening and contractility. There is normal decrease in end-systolic volume. There is also no evidence of resting or exercise induced diastolic dysfunction or pulmonary hypertension. Overall, normal study. Echo: Conclusions: - The left ventricular systolic function is normal. The calculated ejection fraction is 68% by biplane method. - No obvious valvular pathology seen on this study. Holter: Conclusion: 1. Patient was monitored for total period of 2 days 2. Baseline was normal sinus rhythm with average heart rate of 70 beats per minute 3. No significant arrhythmias or pauses noted 4. No patient reported events Assessment & Plan Assessment & Plan (1) Palpitations: Code(s): R00.2 - Palpitations (2) Hypertension: Code(s): I10 - Essential (primary) hypertension (3) Chest pain: Code(s): R07.9 - Chest pain, unspecified Plan Patient stress test showed normal myocardial perfusion. Echocardiogram showed EF of 68%. No valve pathology seen. Small plaque was noted in the sino tubular ridge. Last LDL was 96 on 05/04/2023. Will start low dose atorvastatin to prevent further plaque build-up. Will repeat lipid panel in 2 months. Heart health diet and avoidance of caffeine discussed. Patient reports understanding and agrees to plan. Orders: Orders Lipid Panel 2 Months I10 - Essential (primary) hypertension Basic Metabolic Panel 2 Months I10 - Essential (primary) hypertension Medications: New atorvastatin 20 mg PO DAILY 90 days 90 tabs 3RF Coding Level of Care Code Est Pt Level 3 (21490) Diagnoses Palpitations R00.2 Hypertension I10 Chest pain R07.9
[2023-12-11 12:51] VITALS: BP 130/78; PULSE 78; BMI 27.3
== END 2023-12-11 13:26 | disposition home or self-care (01) ==
PROVIDERS: PCP Internal Medicine; Visit Provider Nurse Practitioner
DX: R00.2 Palpitations (principal); I10 Essential (primary) hypertension; R07.9 Chest pain, unspecified
CPT/HCPCS: 99213

== ENCOUNTER → 2023-12-11 12:47 | Outpatient (BNVA) | payer MEDICAID, SELFPAY | PROVIDERS: PCP Internal Medicine; Visit Provider Nurse Practitioner | DX: I10 Essential (primary) hypertension (principal); R00.2 Palpitations; R07.9 Chest pain, unspecified | CPT/HCPCS: 99212 ==

== ENCOUNTER 2024-02-05 12:55 | Outpatient (AMB) | payer MEDICAID, SELFPAY ==
[2024-02-05 12:57] VITALS: BMI 27.3
--- NOTE | 2024-02-05 12:57 | MHC.OFFVIS ---
Vital Signs 02/05/24 12:57 Height 4 ft 11 in Weight 135 lb BMI 27.3 Intake Visit Reasons: OV-acute B/L knee pain Intake Note: Agnieszka is a 58 year old female who presents for a follow up for her bilateral knee pain. Patient reports she is doing well and the bilateral knee braces are helping. She states that she mostly wears the brace for her right knee. She denies any locking or giving way. The patient states that at this point her bilateral knee discomfort is tolerable to her. Allergies No Known Allergies [No Known Allergies*] Allergy (Verified 02/05/24 13:06) Medication List - Last Reconciled 02/05/24 by Catalino Dunn MD albuterol sulfate 90 mcg/actuation 2 puffs inhalation Q6H PRN amitriptyline 25 mg PO QAM amitriptyline 10 mg PO BEDTIME atorvastatin 20 mg PO DAILY 90 days carvedilol 6.25 mg PO BID cholecalciferol (vitamin D3) 50 mcg PO DAILY conjugated estrogens (Premarin) 0.625 mg PO DAILY divalproex ER 500 mg PO BID docusate sodium (Colace) 100 mg PO BID fluticasone propionate 110 mcg/actuation (Flovent HFA) 1 puff inhalation BID hydrochlorothiazide 50 mg PO DAILY ibuprofen 800 mg PO TID PRN lisinopril 10 mg PO DAILY melatonin 5 - 10 mg PO BEDTIME PRN oxycodone 5 mg PO Q4H PRN polyvinyl alcohol 1.4% (Artificial Tears (polyvinyl alcohol)) 1 drp ophthalmic (eye) TID-QID sertraline 50 mg PO DAILY topiramate 25 mg PO DAILY witch lea 50% (Preparation H (Witch Lea)) 1 pad topical BID-QID PRN zolpidem 10 mg PO BEDTIME PRN PFSH Medical History Hemorrhoid Cough, unspecified Hemorrhoids with complication Hypertension Surgical History History of hemorrhoidectomy History of partial hysterectomy History of tubal ligation History of bariatric surgery Family History Father HTN (hypertension) Mother Tachycardia Social History (Reviewed 05/21/24 @ 13:06 by BRADY Riddle Are you a primary career resource technician to a significant other at home: No Do you presently have visiting nurse or other home services: No Alcohol intake: never Comment: pt states tolerable states it is not pain just pressure Patient Tobacco Use Status: Former Tobacco user Quit Date: 2019 Tobacco use type: Cigarette Years Smoked: 40 +/- 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, 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 Physical Exam Vital Signs: BMI result Body Mass Index 27.3 Const Other: Well-nourished well-developed very friendly female awake alert and oriented x3 in no acute distress Extrem Other: Bilateral lower extremity examination shows good capillary refill, no skin lesions noted, normal sensation light touch Bilateral knee examination shows minimal effusions, minimal crepitus with range of motion, no instability Assessment & Plan Assessment & Plan (1) Right knee pain: Code(s): M25.561 - Pain in right knee Category: Medical (2) Left knee pain: Code(s): M25.562 - Pain in left knee Category: Medical Plan Ms. 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 I had a lengthy discussion with the patient regarding the treatment options. At this point the patient's symptoms are tolerable to her she will continue wearing her knee braces for comfort. She will follow up with me on an as-needed basis should her symptoms worsen in any way. Feel free to call me at any time should questions regarding her orthopedic management arise. I spent 17 minutes in reviewing the patient's records and imaging studies, seeing the patient and documenting in the medical record. Coding Level of Care Code Est Pt Level 2 (40785) Diagnoses Right knee pain M25.561 Left knee pain M25.562
== END 2024-02-05 13:23 | disposition home or self-care (01) ==
PROVIDERS: PCP Internal Medicine; Referring Provider Internal Medicine; Visit Provider Orthopaedic Surgery
DX: M25.561 Pain in right knee (principal); M25.562 Pain in left knee
CPT/HCPCS: 99212

== ENCOUNTER → 2024-02-05 12:55 | Outpatient (BNVA) | payer MEDICAID, SELFPAY | PROVIDERS: PCP Internal Medicine; Visit Provider Orthopaedic Surgery | DX: M25.561 Pain in right knee (principal); M25.562 Pain in left knee | CPT/HCPCS: 99212 ==

== ENCOUNTER 2024-05-07 12:08 | Outpatient (REF) | payer MEDICAID, SELFPAY ==
[2024-05-07 13:17] LABS: MANUAL DIFF FLAG NO
[2024-05-07 13:30] LABS: Basophils Percent Auto 0.5 % (0-2); Eosinophils Absolute Auto 0.1 X10*3/uL (0.0-0.4); Eosinophils Percent Auto 1.2 % (0-4); Hematocrit 39.2 % (37.0-47.0); Hemoglobin 12.6 g/dl (12.0-16.0); Imm Gran Abs Auto 0.02 X10*3/uL (0.00-0.03); Imm Gran Pct Auto 0.3 % (0.0-0.4); Lymphocytes Absolute Auto 2.8 X10*3/uL (1.2-4.9); Lymphocytes Percent Auto 38.1 % (20-40); Mean Corpuscular HGB Conc 32.1 g/dl (31.0-35.0); Mean Corpuscular Hemoglobin 30.6 pg (27.0-33.0); Mean Corpuscular Volume 95.1 fL (80.0-98.0); Monocytes Absolute Auto 0.3 X10*3/uL (0.1-1.2); Monocytes Percent Auto 4.6 % (2-11); Neutrophils Absolute Auto 4.1 x10*3/uL (2.0-8.3); Neutrophils Percent Auto 55.3 % (45-73); Platelet Count 197 X10*3/uL (160-400); Red Blood Count 4.12 X10*6/uL (4.20-5.50); Red Cell Distribution Width 13.4 % (11.0-16.0); White Blood Count 7.4 X10*3/uL (4.8-10.8)
[2024-05-07 13:43] LABS: Estimated Average Glucose 108 mg/dL; Hemoglobin A1c % 5.4 % (<6.0)
[2024-05-07 14:00] LABS: Alanine Aminotransferase 8 U/L (0-31); Albumin Level 3.7 g/dL (3.5-5.0); Alkaline Phosphatase 94 U/L (39-117); Anion Gap 11 (12-20); Aspartate Amino Transferase 13 U/L (5-31); Bilirubin Total 0.2 mg/dL (0.0-1.0); Blood Urea Nitrogen 14 mg/dL (9-16); Calcium 9.4 mg/dL (8.4-10.2); Carbon Dioxide 26 mmol/L (22-29); Chloride 109 mmol/L (96-108); Cholesterol 128 mg/dL (<200); Estimated Glomerular Filt Rate > 60; Glucose Random 90 mg/dL (60-115); HDL Cholesterol 60 mg/dL (>40); Iron 51 mcg/dL (30-160); LDL Cholesterol Calculated 51 mg/dL (<100); Percent Iron Saturation 18 % (15-50); Potassium 4.3 mmol/L (3.3-5.1); Sodium 142 mmol/L (135-145); Total Iron Binding Capacity 282 mcg/dL (228-428); Total Protein 6.4 g/dL (6.5-8.0); Triglycerides 87 mg/dL (<150); Unsaturated Iron Binding 231 ug/dL
[2024-05-07 14:05] LABS: TSH reflex Free T4 1.34 uIU/mL (0.32-4.0)
[2024-05-07 15:56] LABS: Reflex LDLD? No
== END 2024-05-07 12:09 | disposition home or self-care (01) ==
LOC: HO.HHCL 12:08
PROVIDERS: Visit Provider Internal Medicine
DX: R10.84 Generalized abdominal pain (principal); K92.1 Melena; Z00.00 Encounter for general adult medical examination without abnormal findings
CPT/HCPCS: 36415; 80053; 80061; 83036; 83540; 84443; 85025

== ENCOUNTER 2024-05-08 10:18 | Outpatient (REF) | payer MEDICAID, SELFPAY | END 2024-05-08 10:19 | disposition home or self-care (01) | LOC: HO.HHCLNP 10:18 | PROVIDERS: Visit Provider Internal Medicine | DX: R10.84 Generalized abdominal pain (principal) | CPT/HCPCS: 87338 ==

== ENCOUNTER 2024-07-31 12:26 | Outpatient (REF) | payer MEDICAID, SELFPAY ==
--- NOTE | ~2024-07-31 | MM_ITS ---
EXAMINATION: MM SCREENING DIGITAL BREAST TOMOSYNTHESIS, BILATERAL CLINICAL INFORMATION: Screening. Asymptomatic. COMPARISON: Mammography: Comparison is made with available priors TECHNIQUE: Digital breast mammography with tomosynthesis is performed in both the craniocaudal and mediolateral oblique views along with computer-aided detection (CAD). FINDINGS: There are scattered areas of fibroglandular density (ACR BI-RADS breast composition Category b). Circumscribed oval mass central outer left breast was previously demonstrated to be a simple cyst on prior ultrasound 2021. There are no significant masses, abnormal calcifications, or other abnormalities. MM/MM tomosynthesis screening BI IMPRESSION: No mammographic evidence of malignancy. ASSESSMENT: BI-RADS BI-RADS 2 - Benign Findings RECOMMENDATION: Routine annual mammography screening. 1 year F/U This examination should not preclude the clinical evaluation of a suspicious palpable abnormality. This patient's information was entered into a reminder system with a target due date for their next mammogram. Electronically signed by: Patti Ham DO 08/08/2024 12:47 PM ANÍBAL
== END 2024-07-31 12:27 | disposition home or self-care (01) ==
LOC: HO.MAMMO 12:26
PROVIDERS: PCP Internal Medicine; Visit Provider Internal Medicine
DX: Z12.31 Encounter for screening mammogram for malignant neoplasm of breast (principal)
CPT/HCPCS: 77063; 77067

== ENCOUNTER → 2024-07-31 13:00 | Outpatient (BNV) | payer MEDICAID, SELFPAY | PROVIDERS: PCP Internal Medicine; Visit Provider Internal Medicine | DX: Z12.31 Encounter for screening mammogram for malignant neoplasm of breast (principal) | CPT/HCPCS: 77063; 77067 ==

== ENCOUNTER 2024-09-19 09:24 | Outpatient (REF) | payer MEDICAID, SELFPAY ==
[2024-09-19 11:53] LABS: Anion Gap 11 (12-20); Blood Urea Nitrogen 12 mg/dL (9-16); Calcium 8.8 mg/dL (8.4-10.2); Carbon Dioxide 23 mmol/L (22-29); Chloride 111 mmol/L (96-108); Cholesterol 134 mg/dL (<200); Estimated Glomerular Filt Rate > 60; Glucose Random 76 mg/dL (60-115); HDL Cholesterol 62 mg/dL (>40); LDL Cholesterol Calculated 39 mg/dL (<100); Potassium 3.4 mmol/L (3.3-5.1); Sodium 142 mmol/L (135-145); Triglycerides 167 mg/dL (<150)
[2024-09-22 18:47] LABS: TS Negative Control Passed; TS Panel A 0; TS Panel B 0; TS Positive Control Passed; TSpotTB Negative (Negative)
== END 2024-09-19 09:25 | disposition home or self-care (01) ==
LOC: HO.HHCL 09:24
PROVIDERS: Nurse Practitioner; Visit Provider Internal Medicine
DX: I10 Essential (primary) hypertension (principal); Z11.1 Encounter for screening for respiratory tuberculosis
CPT/HCPCS: 36415; 80048; 80061; 86481

== ENCOUNTER 2024-12-10 12:45 | Outpatient (AMB) | payer MEDICAID, SELFPAY ==
--- NOTE | 2024-12-10 12:56 | A.OFFVIS_ITS ---
Vital Signs 12/10/24 12:57 Height 4 ft 11 in Weight 138 lb 14.259 oz BMI 28.0 BP 130/70 Blood Pressure Location Lt brachial Position Sitting Pulse 68 Pulse Source Monitor Intake Visit Reasons: 1 yr f/up AC Intake Note: 1 yr f/up Poultry Inseminator Required: Yes Poultry Inseminator Language: Release Specialist Name: be/pitcairn islander/tonia [id number] Accompanied by: Self / Same As Patient Allergies No Known Allergies [No Known Allergies*] Allergy (Verified 02/05/24 13:06) Medication List - Last Reconciled 12/10/24 by Alber Singh MD albuterol sulfate 90 mcg/actuation 2 puffs inhalation Q6H PRN amitriptyline 25 mg PO QAM amitriptyline 10 mg PO BEDTIME atorvastatin 20 mg PO DAILY 90 days carvedilol 6.25 mg PO BID cholecalciferol (vitamin D3) 50 mcg PO DAILY conjugated estrogens (Premarin) 0.625 mg PO DAILY divalproex ER 500 mg PO BID docusate sodium (Colace) 100 mg PO BID fluticasone propionate 110 mcg/actuation (Flovent HFA) 1 puff inhalation BID hydrochlorothiazide 50 mg PO DAILY ibuprofen 800 mg PO TID PRN lisinopril 10 mg PO DAILY melatonin 5 - 10 mg PO BEDTIME PRN oxycodone 5 mg PO Q4H PRN polyvinyl alcohol 1.4% (Artificial Tears (polyvinyl alcohol)) 1 drp ophthalmic (eye) TID-QID sertraline 50 mg PO DAILY topiramate 25 mg PO DAILY witch lea 50% (Preparation H (Witch Lea)) 1 pad topical BID-QID PRN zolpidem 10 mg PO BEDTIME PRN HPI Comments Details: Pleasant 59-year-old female here for follow-up. She has background history of palpitations and hypertension. 12/10/2024: She is here for follow-up. Apparently she went for colonoscopy at [facility] with the nurse told her that she had episode of atrial flutter. There are no rhythm strips available. They did her colonoscopy and she was eventually sent home. She is saying she is very concerned about this diagnosis. As mentioned I have looked to chart at [facility] for any recorded rhythm strips for atrial flutter and I have not found anything. She is saying that she gets some palpitations which are different than before. [facility] Medical History Hemorrhoid Cough, unspecified Hemorrhoids with complication Hypertension Surgical History History of hemorrhoidectomy History of partial hysterectomy History of tubal ligation History of bariatric surgery Family History Father HTN (hypertension) Mother Tachycardia Social History Are you a primary career transition specialist to a significant other at home: No Do you presently have visiting nurse or other home services: No Alcohol intake: never Comment: pt states tolerable states it is not pain just pressure Patient Tobacco Use Status: Former Tobacco user Tobacco use type: Cigarette Years Smoked: 40 +/- 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, 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 Review of Systems Const Denies chills, Denies fatigue, Denies fever(s), Denies frequent falls, Denies weakness, Denies weight gain and Denies weight loss ENT Denies dizziness Card Denies chest pain, Denies leg edema, Denies lightheadedness, Denies palpitations, Denies dyspnea and Denies dyspnea on exertion Resp Denies cough, Denies dyspnea and Denies dyspnea on exertion GI Denies hematochezia Musc Denies abnormal gait, Denies muscle weakness, Denies numbness, Denies radiating pain into limb and Denies tingling Neuro Denies abnormal gait, Denies dizziness, Denies frequent falls, Denies numbness, Denies tingling and Denies weakness Endo Denies fatigue and Denies palpitations Physical Exam Vital Signs: Last Vital Signs Pulse 68 12/10/24 12:57 BP 130/70 12/10/24 12:57 BMI result Body Mass Index 28.0 GENERAL APPEARANCE: in no acute distress, well developed, well nourished. NECK/THYROID: no carotid bruit, no jugular venous distention. SKIN: no suspicious lesions, warm and dry. HEART: no murmurs, regular rate and rhythm, S1, S2 normal. LUNGS: clear to auscultation bilaterally. ABDOMEN: soft, nondistended. EXTREMITIES: no edema. PERIPHERAL PULSES: equal. NEUROLOGIC: nonfocal, alert and oriented. PSYCH: mood/affect full range. Office Procedures EKG Details: Sinus rhythm 68 beats per minute, normal ECG, QTC 408 milliseconds. [id number], Complete Assessment & Plan Assessment & Plan (1) Palpitations: Code(s): R00.2 - Palpitations Category: Medical (2) Hypertension: Code(s): I10 - Essential (primary) hypertension Category: Medical Plan Pleasant 59-year-old lady with hypertension and background of palpitations. Previous Holter monitoring did not show any significant arrhythmia. She is returning and he is concerned because she went for colonoscopy and 1 of the nurses there told her that she was in atrial flutter. She has a name return on a card given to her. There is noted on strips or EKGs to document atrial flutter. She is getting some palpitations which she thinks are different than before. I have advised her to do a cardiac event monitor to see if she truly has any arrhythmia. If she has atrial flutter then we will accordingly treat her. Blood pressure is stable currently. Follow-up in few months. Thank you for allowing me to participate in the care of your patient. Please feel free to contact me if you have any questions. Orders: Orders ECG 30 day event monitor Today R00.2 - Palpitations Coding Level of Care Code Est Pt Level 4 (67867) Complex EM visit Add On G2211 Diagnoses Palpitations R00.2 Hypertension I10 CPT Codes EKG - CPT: 75303-[id number], Complete ([id number])
[2024-12-10 12:57] VITALS: BP 130/70; PULSE 68; BMI 28.0
== END 2024-12-10 13:59 | disposition home or self-care (01) ==
LOC: HO.HCS 12:45
PROVIDERS: PCP Internal Medicine; Visit Provider Internal Medicine Cardiovascular Disease
DX: R00.2 Palpitations (principal); I10 Essential (primary) hypertension
CPT/HCPCS: 93010; 99214

== ENCOUNTER → 2024-12-10 12:45 | Outpatient (BNVA) | payer MEDICAID, SELFPAY | PROVIDERS: PCP Internal Medicine; Visit Provider Internal Medicine Cardiovascular Disease | DX: R00.2 Palpitations (principal); I10 Essential (primary) hypertension; Z87.891 Personal history of nicotine dependence | CPT/HCPCS: 93005; 99212 ==

== ENCOUNTER → 2024-12-25 12:55 | Outpatient (REF) | payer MEDICAID, SELFPAY ==
--- OUTSIDE RECORDS SUMMARY | 2024-12-25 15:31 | XMS_ITS | Encounter Summary ---
Author Organization [employer] Address [address] [facility] [address] [place] [address] Care Team Providers Care Quality Control Lab Tech Name Role Phone Zakia Toure MD Primary Care Provide r Preston Trevino Unavailable Unavailable Encounter Details Date Type Department Care Team (Late st Contact Info) Description 09/27/2022 Orders Only [facility] [address] [place] [phone] Chanelle Arteaga LPN Social History Tobacco Use Types Packs/Day Years Used Date Smoking Tobacco: Never Assessed Comments Unknown Sex and Gender Information Value Date Recorded Sex Assigned at Female 07/17/2022 10:15 AM EDT Legal Sex Female 10:15 AM EDT Gender Identity Female 07/17/2022 10:15 AM EDT Sexual Orientation Don't know 07/17/2022 10 :15 AM EDT documented as of this encounter Plan of Treatment Upcoming Encounters Date Type Department Care Team (Late st Contact Info) Description 01/29/2025 1:00 PM EDT Office Visit [facility] [address] [place] [phone] Zakia Toure MD [address] [place] [address] documented as of this encounter Visit Diagnoses Not on filedocumented in this encounter Care Teams Quality Control Lab Tech Relationship Specialty Start Date End Date Zakia Toure MD [address] [place] [phone] PCP - General Family Medicine 12/18/18 Preston Trevino FNP [address] [place] [address] Nurse Practitioner Family Medicine 07/30/23 documented as of this encounter
--- OUTSIDE RECORDS SUMMARY | 2024-12-25 15:31 | XMS_ITS | Clinical Summary ---
Author Organization [facility] Address [address] [place] [address] Care Team Providers Care Dictating Transcribing Machine Servicer Name Role Phone Unavailable Primary Care Provider Unavailabl e Social History Tobacco Use Types Packs/Day Years Used Date Smoking Tobacco: Never Assessed Comments Unknown Sex and Gender Information Value Date Recorded Sex Assigned at Not on file Legal Sex Female 10:38 AM EST Gender Identity Not on file Sexual Orientation Not on file Plan of Treatment Health Maintenance Due Date Last Done Comments Breast Cancer Screening 1966 DTaP,Tdap,and Td Vaccines (1 - Tdap) 1985 Hepatitis B Vaccines (1 of 3 - 19+ 3-dose series) 1985 Cervical Cancer Screening: P ap Smear 1987 Pneumococcal Vaccine: 50+ Ye ars (1 of 1 - PCV) 2016 Zoster Vaccines (1 of 2) 2016 COVID-19 Vaccine ( - 2023-2 5 season) 2024 Influenza Vaccine (Season Ended) 2025 HIB Vaccines Aged Out No longer eligi ble based on patient's age to complete this topic HPV Vaccines Aged Out No longer eligi ble based on patient's age to complete this topic Hepatitis A Vaccines Aged Out No long er eligible based on patient's age to complete this topic IPV Vaccines Aged Out No longer eligi ble based on patient's age to complete this topic MMR Vaccines Aged Out No longer eligi ble based on patient's age to complete this topic Meningococcal ACWY Vaccine Aged Out N o longer eligible based on patient's age to complete this topic Meningococcal B Vaccine Aged Out No l onger eligible based on patient's age to complete this topic Pneumococcal Vaccine: Pediat rics (0 to 5 Years) and At-Risk Patients (6 to 64 Years) Aged Out No longer eligible b ased on patient's age to complete this topic RSV Immunization Patients Un catia 20 months Aged Out No longer eligible b ased on patient's age to complete this topic Varicella Vaccines Aged Out No longer eligible based on patient's age to complete this topic
--- OUTSIDE RECORDS SUMMARY | 2024-12-25 15:31 | XMS_ITS | Encounter Summary ---
Author Organization [employer] Address [address] [facility] [address] [place] [address] Care Team Providers Care Senior Nurse Manager Name Role Phone Zakia Toure MD Primary Care Provide r Preston Trevino Unavailable Unavailable Encounter Details Date Type Department Care Team (Late st Contact Info) Description 08/22/2023 Orders Only [facility] [address] [place], [place] [phone] Taina Pettit MD [address] [place], [place] [phone] Encounter for preventive health examination (Primary Dx) Social History Tobacco Use Types Packs/Day Years Used Date Smoking Tobacco: Some Days Cigarettes Passive Smoke Exposure: Never Smokeless Tobacco: Never Alcohol Use Standard Drinks/Week Comments Never 0 (1 standard drink = 0.6 oz pur e alcohol) Alcohol Answer Date Recorded Frequency of Alcohol Consumption Not on file 07/24/2023 Average Number of Drinks Not on file 023 Frequency of Binge Drinking Not on file 03/2023 Score 0 07/24/2023 Depression Answer Date Recorded Patient Health Questionnaire-9 Score 1 08/16/2023 Patient Health Questionnaire-9 Score 1 08/16/2023 Last PHQ-9: Questionnaire Data Not on file 1 10/16/2022 Housing Stability Answer Date Recorded What is your housing situation today? I have anamaria marlow 07/12/[address] you li ve. Do you have problems with any of the following? None of the above 07/12/2023 Food Insecurity Answer Date Recorded Within the past 12 months, y ou worried that your food would run out before you got money to buy more: Never True 07/12/2023 Within the past 12 months,th e food you bought just didn't last and you didn't have enough money to get more: Never True Transportation Answer Date Recorded In the past 12 months, has l ack of transportation kept you from medical appts, meetings, work or from getting things needed for daily living? No 07/12/2023 Utilities Answer Date Recorded In the past 12 months, has t he electric, gas, oil or water company threatened to shut off services in your home? No 07/12/2023 Depression Answer Date Recorded Patient Health Questionnaire-2 Score 0 08/16/2023 Comments Unknown Sex and Gender Information Value [...] Description 01/29/2025 1:00 PM EDT Office Visit [facility] [address] [place] [phone] Zakia Toure MD [address] [place] [address] documented as of this encounter Visit Diagnoses Diagnosis Encounter for preventive health examination- Primary documented in this encounter Additional Health Concerns Assessment Noted Time PHQ-9 Depression Total Score: 1 08/16/20 23 9:06 AM EST documented as of this encounter Care Teams Senior Nurse Manager Relationship Specialty Start Date End Date Zakia Toure MD [address] [place] [phone] PCP - General Family Medicine 12/18/18 Preston Trevino FNP [address] [place] [phone] Nurse Practitioner Family Medicine 07/30/23 documented as of this encounter
--- OUTSIDE RECORDS SUMMARY | 2024-12-25 15:32 | XMS_ITS | Encounter Summary ---
Author Organization [employer] Address [address] [place] [address] Care Team Providers Care Machine Lead Burner Name Role Phone Zakia Toure MD Primary Care Provide r Preston Trevino Unavailable Unavailable Reason for Visit * Reason Comments Med Refill Encounter Details Date Type Department Care Team ([facility] st Contact Info) Description 02/26/2024 Refill [facility] [address] [place] [address] Preston Trevino FNP Social History Tobacco Use Types Packs/Day Years [...] Answer Date Recorded Patient Health Questionnaire-9 Score 2 02/05/2024 Patient Health Questionnaire-9 Score 2 02/05/2024 Last PHQ-9: Questionnaire Data Not on file 0 02/05/2024 Housing Stability Answer Date Recorded What is [...] Date Recorded Patient Health Questionnaire-2 Score 0 02/05/2024 Comments Unknown Sex and Gender Information Value [...] Description 01/29/2025 1:00 PM EDT Office Visit [facility] [address] [place] [address] Zakia Toure MD [address] [place] [address] documented as of this encounter Visit Diagnoses Not on filedocumented in this encounter Additional Health Concerns Assessment Noted Time PHQ-9 Depression Total Score: 2 02/05/20 24 9:24 AM EDT documented as of this encounter Care Teams Machine Lead Burner Relationship Specialty Start Date End Date Zakia Toure MD [address] [place] [phone] PCP - General Family Medicine 12/18/18 Preston Trevino FNP [address] [place] [phone] Nurse Practitioner Family Medicine 07/30/23 documented as of this encounter
--- OUTSIDE RECORDS SUMMARY | 2024-12-25 15:32 | XMS_ITS | Clinical Summary ---
Author Organization [employer] Address [address] [facility] [address] [place] [address] Care Team Providers Care Head Of Partner Development Name Role Phone Zakia Toure MD Primary Care Provide r Preston Trevino Unavailable Unavailable Allergies No known active allergies Medications albuterol (2.5 MG/3ML) 0.083% nebulizer solutionIndicati ons:Shortness of breath USE 1 AMPULE USING A NEBULIZER THREE TIMES DAILY 90 mL 3 03/22/20 23 Active Ventolin HFA 108 (90 Base) MCG/ACT inhalerIndicatio ns:Mild persistent asthma, unspecified whether complicated INHALE 2 PUFFS BY MOUTH EVERY 4 TO 6 HOURS NEEDED 18 g 3 03/29/20 23 Active Azelastine HCl 137 MCG/SPRAY solution USE 1 SPRAY INTO EACH NOSTRIL TWICE A DAY 07/26/20 23 Active lidocaine (Lidoderm) 5 % patchIndications :Acute pain of right knee Apply 1 patch topically in the morning. Remove & discard patch within 12 hours or as directed by MD. 30 patch 1 10/25/19 24 Active hydrOXYzine HCl (Atarax) 10 MG tablet Take 1-2 tablets (10-20 mg) by mouth every 6 (six) hours if needed for anxiety. 60 tablet 11 02/05/20 24 Active Ventolin HFA 108 (90 Base) MCG/ACT inhalerIndicatio ns:Mild intermittent asthma, unspecified whether complicated INHALE 2 PUFFS BY MOUTH EVERY 4 TO 6 HOURS NEEDED 18 g 2 02/15/20 24 Active Premarin 0.3 MG tabletIndication s:Menopause TAKE 1 TABLET BY MOUTH ONCE DAILY IN THE MORNING 30 tablet 2 02/28/20 24 Active hydroCHLOROthiaz lisa (HYDRODiuril) 50 MG tabletIndication s:Primary hypertension Take 1 tablet (50 mg) by mouth Once per day. 90 tablet 05/07/20 24 Active cetirizine (ZyrTEC) 10 MG tabletIndication s:Seasonal allergies TAKE 1 TABLET BY MOUTH EVERY DAY 90 tablet 1 05/07/20 24 Active carvedilol (Coreg) 6.25 MG tabletIndication s:Essential hypertension Take 1 tablet (6.25 mg) by mouth with breakfast and with evening meal. 60 tablet 11 05/07/20 24 025 Active melatonin 5 MG tabletIndication s:Bipolar 2 disorder (CMS/HCC) Take 1-2 tablets (5-10 mg) by mouth if needed at bedtime (sleep). 180 tablet 3 05/07/20 24 Active lisinopril 40 MG tabletIndication s:Primary hypertension Take 1 tablet (40 mg) by mouth Once per day. 30 tablet 11 05/07/20 24 025 Active divalproex (Depakote ER) 250 MG 24 hr tabletIndication s:Bipolar 2 disorder (CMS/HCC) Take 3 tablets (750 mg) by mouth 2 times daily. 540 tablet 3 05/07/20 24 Active D3 Super Strength 50 MCG (2000 UT) capsuleIndicatio ns:Vitamin D deficiency TAKE 1 CAPSULE BY MOUTH EVERY DAY 90 capsule 1 07/09/20 24 Active fluticasone (Flonase) 50 MCG/ACT nasal sprayIndications :Mild intermittent asthma, unspecified whether complicated INSTILL 1-2 SPRAYS IN EACH NOSTRIL ONCE DAILY NEEDED 48 g 1 07/09/20 24 Active omeprazole (PriLOSEC) [address] capsuleIndicatio ns:Generalized abdominal pain Take 1 capsule (20 mg) by mouth before breakfast and before evening meal. Do not crush or chew. 180 capsule 1 09/18/19 25 Active atorvastatin (Lipitor) 20 MG tabletIndication s:Essential hypertension Take 1 tablet (20 mg) by mouth Once per day. 90 tablet 1 09/18/19 25 026 Active zolpidem (Ambien) 10 MG tabletIndication s:Bipolar 2 disorder (CMS/HCC) TAKE 1 TABLET BY MOUTH AT BEDTIME NEEDED FOR SLEEP 30 tablet 1 11/29/19 25 Active zolpidem (Ambien) 10 MG tabletIndication s:Bipolar 2 disorder (CMS/HCC) TAKE 1 TABLET BY MOUTH AT BEDTIME NEEDED FOR SLEEP 30 tablet 1 09/19/19 25 025 Discontinued Active Problems Problem Noted Date Diagnosed Date AIN (anal intraepithelial neoplasia) anal canal 09/18/2024 Assessment & Plan (09/18/2024 4:18 PM EST): I explain to patient pathology results and that she needs to f/u with specialist for next steps, I explain to her lesion is not cancer but is premalignant meaning if she does not follow up as requested lesion can turn in to cancer, she understood Tuberculosis screening 09/18/2024 Encounter for preventive care 05/07/2024 Assessment & Plan (05/07/2024 12:43 PM EDT): See HPI Blood in stool 05/07/2024 Assessment & Plan (05/07/2024 12:42 PM EDT): Stat referral to GI, labs ordered Generalized abdominal pain 05/07/2024 Assessment & Plan (06/26/2024 12:35 PM EDT): Do not miss GI appointment C/w omeprazole 20mg BID I advise patient to avoid NSAIDs, spicy and acid food, I advise to eat at the same time every day, I advise to elevate the head of the bed and take medications as prescribe I advise to do a food diary before her GI appointment Menopause 10/25/2023 Mild intermittent asthma 10/25/2023 Decreased vision of right eye 07/24/2023 Migraine without aura, not refractory 05/04/2023 Encounter for preventive health examination 04/17 Assessment & Plan (05/04/2023 1:20 PM EDT): See HPI Colon cancer screening 05/04/2023 Heartburn 05/04/2023 Assessment & Plan (05/04/2023 1:20 PM EDT): I advise patient to avoid NSAIDs, spicy and acid food, I advise to eat at the same time every day, I advise to elevate the head of the bed and take medications as prescribe Acute pain of right knee 01/29/2023 Essential hypertension 01/29/2023 Assessment & Plan (09/18/2024 4:16 PM EST): I advised: - Aerobic exercise to reduce BP. Initial goal of 30 min walk 3-5x/week. Increase as tolerated. - low-sodium diet (goal: <2g/day) and heart healthy diet such as DASH to reduce BP and prevent ASCVD. - Home BP monitoring 1-2 x day with goal of <140/90. - Seek immediate medical attention for chest pain, palpitations, SOB, syncope, or sudden changes in mental status. - Do not change or discontinue current prescriptions without first consulting health care provider Assessment & Plan (05/07/2024 12:42 PM EDT): Maintenance: BMP: ordered today Lipid Panel: ordered tiday ASCVD Risk: Calculate pending updated labs on atorvastatin 20mg daily prescribed by cardiology - Aerobic exercise to reduce BP. Initial goal of 30 min walk 3-5x/week. Increase as tolerated. - low-sodium diet (goal: <2g/day) and heart healthy diet such as DASH to reduce BP and prevent ASCVD. - Home BP monitoring 1-2 x day with goal of <140/90. - Seek immediate medical attention for chest pain, palpitations, SOB, syncope, or sudden changes in mental status. - Do not change or discontinue current prescriptions without first consulting health care provider Assessment & Plan (10/25/2023 1:34 PM EST): - Aerobic exercise to reduce BP. Initial goal of 30 min walk 3-5x/week. Increase as tolerated. - low-sodium diet (goal: <2g/day) and heart healthy diet such as DASH to reduce BP and prevent ASCVD. - Home BP monitoring 1-2 x day with goal of <140/90. - Seek immediate medical attention for chest pain, palpitations, SOB, syncope, or sudden changes in mental status. - Do not change or discontinue current prescriptions without first consulting health care provider Assessment & Plan (07/24/2023 1:34 PM EST): - Aerobic exercise to reduce BP. Initial goal of 30 min walk 3-5x/week. Increase as tolerated. - low-sodium diet (goal: <2g/day) and heart healthy diet such as DASH to reduce BP and prevent ASCVD. - Home BP monitoring 1-2 x day with goal of <140/90. - Seek immediate medical attention for chest pain, palpitations, SOB, syncope, or sudden changes in mental status. - Do not change or discontinue current prescriptions without first consulting health care provider Assessment & Plan (05/04/2023 1:20 PM EDT): Uncontrolled I added today to her regimen carvedilol 6.25mg BID, c/w hydrochlorothiazide 50mg daily, I advise low Na diet, if BP is still not control plan is to add lisinopril 10mg RTC nurse visit 2 weeks Assessment & Plan (01/29/2023 10:08 AM EDT): Maintenance: BMP: up to date Lipid Panel: up to date - Aerobic exercise to reduce BP. Initial goal of 30 min walk 3-5x/week. Increase as tolerated. - low-sodium diet (goal: <2g/day) and heart healthy diet such as DASH to reduce BP and prevent ASCVD. - Home BP monitoring 1-2 x day with goal of <140/90. - Seek immediate medical attention for chest pain, palpitations, SOB, syncope, or sudden changes in mental status. - Do not change or discontinue current prescriptions without first consulting health care provider Hemorrhoids 01/29/2023 Maxillary sinusitis 01/29/2023 Seasonal allergies 01/29/2023 Bipolar 2 disorder 10/12/2022 Assessment & Plan (05/07/2024 12:42 PM EDT): C/w therapist C/w current medications Assessment & Plan (02/05/2024 9:52 AM EDT): Mood is stable and she will continue Depakote ER 250 mg tablets to take 3 BID. For anxiety, will have Hydroxyzine 10 mg to take 1-2 tablets every 6 hours as needed. Cautioned about sedation. Continue Zolpidem 10 mg at bedtime as needed and Melatonin 5 mg 1-2 at bedtime as needed. Continue with her therapist as usual and do request referral to agency prescriber. Meanwhile, her PCP will manage her medications, and she could be referred to new [facility] Psychiatric prescriber if needed. Any issues or concerns, contact [facility]. All her questions were answered. I have wished her well. She agrees with the plan. Assessment & Plan (10/25/2023 1:35 PM EST): I told patient I will c/w her psych prescription (balbir doses) until its arrange for her to be connected with new psych prescriber Assessment & Plan (10/16/2023 9:39 AM EST): Mood is again stable. However she is having trouble swallowing the large Depakote ER 500 mg tablets. Will instead have Depakote ER 250 mg tablets to take 3 BID. Continue Zolpidem 10 mg at bedtime as needed and Melatonin 5 mg 1-2 at bedtime as needed. Continue with her therapist as usual. On 08/16/2023 provider informed the patient that I would be retiring. May request records from [facility] to facilitate intake with new outpatient agency prescriber. Meanwhile, F/u with me in 2 months. She agrees with the plan. Assessment & Plan (08/16/2023 10:07 AM EST): Having some depressive symptoms. Labs of 05/15/2023 showed Depakote level low (36 target range 50-100). Will increase now to Depakote ER 500 mg 3 tablets total daily, divided doses. Continue Zolpidem 10 mg at bedtime as needed and Melatonin 5 mg 1-2 at bedtime as needed. Continue with her therapist as usual. Today 08/16/2023 provider informed the patient that I would be retiring within the next year or so, and suggest she speak with therapist about referral to agency psychiatric prescriber. F/u with me in 2 months. She agrees with the plan. Assessment & Plan (05/15/2023 3:11 PM EDT): Under quite a bit of stress r/t serious illness of her older brother and role as support person for many family members. Does have good support system. Check Depakote level. Meanwhile Continue Depakote 250 mg 5 tabs daily for a total daily dose of 1250 mg. Continue Zolpidem 10 mg at bedtime as needed and Melatonin 5 mg 1-2 at bedtime as needed. Continue with her therapist as usual. F/u with me in 2 months. She agrees with the plan. Assessment & Plan (02/13/2023 2:43 PM EDT): Doing well. Continue Depakote 250 mg 5 tabs daily for a total daily dose of 1250 mg. Continue Zolpidem 10 mg at bedtime as needed and Melatonin 5 mg 1-2 at bedtime as needed. Continue with her therapist as usual. F/u with me in 2-3 months. She agrees with the plan. Assessment & Plan (12/12/2022 9:33 AM EDT): Doing well. Continue Depakote 250 mg 5 tabs daily for a total daily dose of 1250 mg. Continue Zolpidem 10 mg at bedtime as needed and Melatonin 5 mg 1-2 at bedtime as needed. Continue with her therapist as usual. F/u with me in 2 months. She agrees with the plan. Assessment & Plan (10/12/2022 11:01 AM EST): Still experiencing a lot of stress r/t her adult son with severe chronic mental illness. Recommend adding the 5th tablet of Depakote 250 mg daily for a total daily dose of 1250 mg. Continue Zolpidem 10 mg at bedtime as needed and Melatonin 5 mg 1-2 at bedtime as needed. F/u with me in 2 months. She agrees with the plan. Encounters Date Type Department Care Team Description 11/28/2024 Population Health Risk Score Community Care [facility] (C3) Department [address] [facility] [address] [place] [address] Provider, Population Health Generic 11/28/2024 Refill [facility] [address] [place] [address] Zakia Toure MD Bipolar 2 disorder ([facility]) from Last 3 Months Immunizations Name Administration Dates Next Due Hep B, adult 12/08/2021,09/19/2021,08/18/2021 INFLUENZA INJECTABLE QUADRIV ALANT CCIIV4 MDCK Multi-dose vial 07/02/2019 INFLUENZA VACCINE QUADRIVALE NT RECOMBINANT PRESERVATIVE FREE RIV4 06/26/2021 Influenza Injectable Quadriv alant Preservative Free IIV4 MDCK 07/01/2020,05/28/2017 Influenza injectable quadriv alent preservative free 07/24/2023,08/09/2022,07/30/2019 Influenza, seasonal, injecta ble, preservative free 09/18/2024 Pfizer Covid-19 Vaccine 12+ 09/18/2024, Pneumococcal Conjugate PCV 20 08/09/2022 Tdap 04/21/2020 Zoster, Recombinant 12/27/2023,10/25/2023 Social History Tobacco Use Types Packs/Day Years Used Date Smoking Tobacco: Some Days Cigarettes Passive Smoke Exposure: Current Smokeless Tobacco: Never Tobacco Cessation:Ready to Q uit: Not Asked; Counseling Given: Not Answered Alcohol Use Standard Drinks/Week Comments Never 0 (1 standard drink = 0.6 oz pur e alcohol) Alcohol Answer Date Recorded Frequency of Alcohol Consumption Not on file 07/24/2023 Average Number of Drinks Not on file 023 Frequency of Binge Drinking Not on file 03/2023 Score 0 07/24/2023 Depression Answer Date Recorded Patient Health Questionnaire-9 Score 8 09/18/2024 Patient Health Questionnaire-9 Score 8 09/18/2024 Last PHQ-9: Questionnaire Data Not on file 0 09/18/2024 Housing Stability Answer Date Recorded What is your housing situation today? I have anamariakendra marlow 07/12/[address] you [...] Answer Date Recorded Patient Health Questionnaire-2 Score 2 09/18/2024 Comments Unknown Sex and Gender Information Value Date Recorded Sex Assigned at Female 07/17/2022 10:15 AM EDT Legal Sex Female 10:15 AM EDT Gender Identity Female 07/17/2022 10:15 AM EDT Sexual Orientation Don't know 07/17/2022 10 :15 AM EDT Last Filed Vital Signs Vital Sign Reading Time Taken Comments Blood Pressure 135/85 09/18/2024 11:56 AM EST Pulse 66 09/18/2024 11:56 AM EST Temperature 36.4 ??C (97.6 ??F) 09/18/2024 11:[address] Respiratory Rate 20 09/18/2024 11:56 AM EST Oxygen Saturation 100% 09/18/2024 11:56 AM EST Inhaled Oxygen Concentration - - Weight 61.2 kg (135 lb) 09/18/2024 11:56 AM EST Height 149.9 cm (4' 11 ) 09/18/2024 11:56 AM EST Body Mass Index 27.27 09/18/2024 11:56 AM EST Plan of Treatment Upcoming Encounters Date Type Department Care Team (Late st Contact Info) Description 01/29/2025 1:00 PM EDT Office Visit [facility] [address] [place] [address] Zakia Toure MD [address] [place] [address] Health Maintenance Due Date Last Done Comments CT Colonography 1966 Colonoscopy 1966 FIT 1966 FOBT 1966 HIV Screening 1965 Sigmoidoscopy 1966 Pap Smear 1987 HPV/Cotest 1996 SDOH Screening 10/22/2024 10/22/2023 Mammogram 07/31/2025 07/31/2024, 11/0 10/2022, 07/26/2022, Additional history exists Alcohol/Substance Use Screening 09/18/2025 09/18/2024 Depression Screening 09/18/2025 09/18/2024, 09/18/19 25 Tobacco Screening 09/18/2025 09/18/2024 Colorectal Cancer Screening 05/14/2026 FIT DNA/Cologuard 05/14/2026 05/14/2023, 05/14/2023 Lipid Panel 09/19/2029 09/19/2024, 04/18, 05/04/2023, Additional history exists DTaP/Tdap/Td Vaccines (3 - Td or Tdap) 04/21/2030 04/21/2020, 02/15/2014 RSV Patients and Patients Aged 60 years or older (1 - 1-dose 75+ series) 2041 Hepatitis B Vaccines Completed 12/08/2021, 09/19/2021, 08/18/2021 Pneumococcal Vaccine: 50+ Years Completed 08/09/2022 Hepatitis C Screening Completed 05/04/2023 Zoster Vaccines Completed 12/27/2023, 10/25/2023 COVID-19 Vaccine Completed 09/18/2024, 04/2024, 08/09/2022, Additional history exists Influenza Vaccine Completed 09/18/2024, , 08/09/2022, Additional history exists Cervical Cancer Screening Discontinued HIB Vaccines Aged Out No longer eligi [...] patient's age to complete this topic Meningococcal Vaccine Aged Out No angelina kaela eligible based on patient's age to complete this topic RSV under 20 months Aged Out No longe r eligible based on patient's age to complete this topic Rotavirus Vaccines Aged Out No longer eligible based on patient's age to complete this topic Procedures Procedure Name Priority Date/Time Associated Diagnosis Comments LIPID PANEL, STANDARD Routine 09/19/2024 9:26 AM EST BI MAMMOGRAM SCREENING TOMOSYNTHESIS BILATERAL Routine 07/31/2024 12:35 PM EST LAB COLOGUARD?? COLON CANCER SCREEN Routine 05/14/2023 6:52 AM EDT Colon cancer screening HEPATITIS PANEL, GENERAL Routine 05/04/2023 11:28 AM EDT Encounter for preventive health examination from Last 3 Months or Most Recently Relevant to Health Maintenance Results * (ABNORMAL) Lipid Panel, Standard (09/19/2024 9:26 AM EST) Triglycerides 167(H) <150 mg/dL [facility] Comment:Desirable Triglyceri de: less than 150 mg/dLBorderline High Triglyceride 150-199 mg/dLHigh Triglyceride: 200-499 mg/dLVery High Triglyceride: greater than or equal to 5OO mg/dL Cholesterol 134 <200 mg/dL [facility] Comment:Desirable Cholestero l: less than 200 mg/dLBorderline High Cholesterol: 200-239 mg/dLHigh Cholesterol: greater than 239 mg/dL LDL Cholesterol Calculated 39 <100 mg/dL [facility] Comment:Desirable LDL: less than 100 mg/dLNear Optimal/Above Optimal LDL: 110- 129 mg/dLBorderline High LDL: 130-159 mg/dLHigh LDL: 160-189 mg/dLVery High LDL: greater than or equal to 190 mg/dL HDL Cholesterol 62 >40 mg/dL [facility] Comment:Desirable HDL: great er than 40 mg/dL Note: This HDL assay may give artificially low results in patients with liver disease. 09/19/2024 9:26 AM EST 09/19/2024 11:03 AM EST us Generic External Data Provider LAB BLOOD ORDERAB LES Final Result [facility] [address] [place] [phone] * BI Mammogram Screening Tomosynthesis Bilateral (07/31/2024 12:35 PM EST) Anatomical Region Laterality Modality Breast Bilateral Mammography 07/31/2024 12:3 5 PM EST Narrative 08/08/2024 12:50 PM EST ? [facility] ? [address] ?[place] [address] ? Mammography Report ? Signed ? Patient: Garg,Agnieszka E ?MR#: [id number] ?? [id number] ? : 1965 ?Acct:[id number] ? Age/Sex: 58 / F ?ADM Date: 07/31/24 ? Loc: HO.MAMMO ? Attending Dr: Zakia Wilhelm MD ? Ordering Physician: Zakia Toure MD ?Results: ?? 2Benign Findings ? Date of Service: 07/31/24 ?Follow Up: 1 Year From Orig ?? inal Mammogram ? Procedure(s): MM tomosynthesis screening BI ?? Accession Number(s): [id number] ? cc: Zakia Toure MD ? EXAMINATION: ?? MM SCREENING DIGITAL BREAST TOMOSYNTHESIS, BILATERAL ? CLINICAL INFORMATION: ? Screening. Asymptomatic. ? COMPARISON: ?? Mammography: Comparison is made with available priors ? TECHNIQUE: ?? Digital breast mammography with tomosynthesis is performed in both the ?? craniocaudal and mediolateral oblique views along with computer-aided ?? detection (CAD). ? FINDINGS: ?? There are scattered areas of fibroglandular density (ACR BI-RADS breast ?? composition Category b). ?? Circumscribed oval mass central outer left breast was previously ?? demonstrated to be a simple cyst on prior ultrasound 2021. ?? There are no significant masses, abnormal calcifications, or other ?? abnormalities. ? MM/MM tomosynthesis screening BI ?? IMPRESSION: ?? No mammographic evidence of malignancy. ? ASSESSMENT: ? BI-RADS BI-RADS 2 - Benign Findings ? RECOMMENDATION: ?? Routine annual mammography screening. ? 1 year F/U ? This examination should not preclude the clinical evaluation of a ?? suspicious palpable abnormality. ? This patient's information was entered into a reminder system with a ?? target due date for their next mammogram. ? Electronically signed by: ??Patti Ham DO ??08/08/2024 12:47 PM EST ? Dictated By: ?Patti Ham DO ? Signed By: ?<Electronically signed by Patti Ham, DO in OV> ? 08/08/24 1247 ? DD/ 1235 ? TD/TT: 07/31/24 1252 ? Chaplaincy: ? Procedure Note Elliott, Bg - 08/08/2024 [facility] [address] [place] [address] Mammography Report Signed Patient: Agnieszka Garg EMR#: [id number] : 1965Acct:[id number] Age/Sex: 58 / FADM Date: 07/31/24 Loc: HO.MAMMO Attending Dr: Zakia Wilhelm MD Ordering Physician: Zakia Toure MDResults: 2Benign Findings Date of Service: 07/31/24Follow Up: 1 Year From Orig inal Mammogram Procedure(s): MM tomosynthesis screening BI Accession Number(s): [id number] cc: Zakia Toure MD EXAMINATION: MM SCREENING DIGITAL BREAST TOMOSYNTHESIS, BILATERAL CLINICAL INFORMATION: Screening. Asymptomatic. COMPARISON: Mammography: Comparison is made with available priors TECHNIQUE: Digital breast mammography with tomosynthesis is performed in both the craniocaudal and mediolateral oblique views along with computer-aided detection (CAD). FINDINGS: There are scattered areas of fibroglandular density (ACR BI-RADS breast composition Category b). Circumscribed oval mass central outer left breast was previously demonstrated to be a simple cyst on prior ultrasound 2021. There are no significant masses, abnormal calcifications, or other abnormalities. MM/MM tomosynthesis screening BI IMPRESSION: No mammographic evidence of malignancy. ASSESSMENT: BI-RADS BI-RADS 2 - Benign Findings RECOMMENDATION: Routine annual mammography screening. 1 year F/U This examination should not preclude the clinical evaluation of a suspicious palpable abnormality. This patient's information was entered into a reminder system with a target due date for their next mammogram. Electronically signed by: Patti Ham DO 08/08/2024 12:47 PM [facility] Dictated By: Patti Ham DO Signed By: <Electronically signed by Patti Ham DO in OV> 08/08/24 1247 DD/ 1235 TD/TT: 07/31/24 1252 Chaplaincy: Zakia Wilhelm MD IMG BI PROCEDURES Fin al Result * Cologuard?? colon cancer screening (05/14/2023 6:52 AM EDT) Cologuard Result Negative Negative 05/19/20 10:23 AM EDT [facility] (CLIA #:[id number]) Comment: NEGATIVE TEST RESULT. A negative Cologuard result indicates a low likelihood that a colorectal cancer (CRC) or advanced adenoma (adenomatous polyps with more advanced pre-malignant features) ??is present. The chance that a person with a negative Cologuard test has a colorectal cancer is less than 1 in 1500 (negative predictive value >99.9%) or has an ??advanced adenoma is less than ??5.3% (negative predictive value 94.7%). These data are based on a prospective cross-sectional study of 10,000 individuals at average risk for colorectal cancer who were screened with both Cologuard and colonoscopy. (Norm Bashir al, N Engl J Med 2014;370(14):1286- 1297) The normal value (reference range) for this assay is negative. COLOGUARD RE-SCREENING RECOMMENDATION: Periodic colorectal cancer screening is an important part of preventive healthcare for asymptomatic individuals at average risk for colorectal cancer. ??Following a negative Cologuard result, the [place] [employer] and U.S. Multi-Society Task Force screening guidelines recommend a Cologuard re-screening interval of 3 years. References: [place] [employer] Guideline for Colorectal Cancer Screening: https://www.cancer.org/cancer/fnvgj-zzebej-glmbck/qxribidcs-xjelvgpqc-qgvekmz/ac s-rec ommendations.html.; Hema DK, Jaycob MUIR, Cong VergaraK, Colorectal Cancer Screening: Recommendations for Physicians and Patients from the U.S. Multi-Society Task Force on Colorectal Cancer Screening , Am J Gastroenterology 2017; 112:1629-7029. TEST DESCRIPTION: Composite algorithmic analysis of stool DNA-biomarkers with hemoglobin immunoassay. ?? Quantitative values of individual biomarkers are not reportable and are not associated with individual biomarker result reference ranges. Cologuard is intended for colorectal cancer screening of adults of either sex, 45 years or older, who are at average-risk for colorectal cancer (CRC). Cologuard has been approved for use by the U.S. FDA. The performance of Cologuard was established in a cross sectional study of average-risk adults aged 50-84. Cologuard performance in patients ages 45 to 49 years was estimated by sub-group analysis of near-age groups. Colonoscopies performed for a positive result may find as the most clinically significant lesion: colorectal cancer [4.0%], advanced adenoma (including sessile serrated polyps greater than or equal to 1cm diameter) [20%] or non- advanced adenoma [31%]; or no colorectal neoplasia [45%]. These estimates are derived from a prospective cross-sectional screening study of 10,000 individuals at average risk for colorectal cancer who were screened with both Cologuard and colonoscopy. (Norm Sullivan, N Engl J Med 2014;370(14):2839-9143.) Cologuard may produce a false negative or false positive result (no colorectal cancer or precancerous polyp present at colonoscopy follow up). A negative Cologuard test result does not guarantee the absence of CRC or advanced adenoma (pre-cancer). The current Cologuard screening interval is every 3 years. ([place] [employer] and U.S. Multi-Society Task Force). Cologuard performance data in a 10,000 patient pivotal study using colonoscopy as the reference method can be accessed at the following location: www.[employer]/results. Additional description of the Cologuard test process, warnings and precautions can be found at www.cologuard.com. Stool specimen (specimen) 05/14/2023 6:52 AM EDT 05/15/2023 9:35 PM EDT Zakia Wilhelm MD LAB MOLECULAR DIAGNOS TICS ORDERABLES Final Result Performing Organization Address City/[facility]/ZIP Co de Phone Number [facility] (CLIA #:[id number]) [place] [address], [place] [phone] * Hepatitis A,B,C Profile (05/04/2023 11:28 AM EDT) Hepatitis A IgM Nonreactive Nonreactive [facility] Comment:IgM antibodies to BURTON V not detected; does not exclude earlyacute or recovered HAV infection. ~Hepatitis B Surface Antibody REACTIVE Nonreactive [facility] Comment:REACTIVE: > 11.99 mI U/mL Hepatitis B Core Antibody Nonreactive Nonreactive [facility] Hepatitis C Antibody Nonreactive Nonreactive [facility] Comment:Antibodies to HCV no t detected; does not exclude early acuteHCV infection. Hepatitis B Surface Ag Negative Negative [facility] Blood Venous blood specimen / Unknown 05/04/2023 11:28 AM EDT 05/04/2023 1:00 PM EDT Zakia Wilhelm MD LAB BLOOD ORDERABLES Final Result Performing Organization Address [facility] Co de Phone Number [facility] [address] [place] [phone] from Last 3 Months or Most Recently Relevant to Health Maintenance [place] [address] C3 Care Teams Head Of Partner Development Relationship Specialty Start Date End Date Zakia Toure MD [address] [place] [address] PCP - General Family Medicine 12/18/18 Preston Trevino FNP [address] [place] [address] Nurse Practitioner Family Medicine 07/30/23
--- OUTSIDE RECORDS SUMMARY | 2024-12-25 15:32 | XMS_ITS | Encounter Summary ---
Author Organization [employer] Address [address] [place] [address] [address] [place] [address] Care Team Providers Care Truck Bracer Name Role Phone Zakia Toure MD Primary Care Provide r Preston Trevino Unavailable Unavailable Reason for Visit * Reason Comments Med Refill Encounter Details Date Type Department Care Team (Late Contact Info) Description 04/19/2023 Refill [facility] [address] [place] [address] [phone] Zakia Toure MD [address] [place] [address] [phone] Seasonal allergies Social History Tobacco Use Types Packs/Day Years Used Date Smoking Tobacco: Never Passive Smoke Exposure: Never Smokeless Tobacco: Never Comments Unknown Sex and Gender Information Value Date Recorded Sex Assigned at Female 07/17/2022 10:15 AM EDT Legal Sex Female 10:15 AM EDT Gender Identity Female 07/17/2022 10:15 AM EDT Sexual Orientation Don't know 07/17/2022 10 :15 AM EDT documented as of this encounter Plan of Treatment Upcoming Encounters Date Type Department Care Team ([facility] Contact Info) Description 01/29/2025 1:00 PM EDT Office Visit [facility] [address] [place] [address] [phone] Zakia Toure MD [address] [place] [address] [phone] documented as of this encounter Visit Diagnoses Diagnosis Seasonal allergies Allergic rhinitis, cause unspecified documented in this encounter Additional Health Concerns Assessment Noted Time PHQ-9 Depression Total Score: 0 02/14/20 23 2:17 PM EDT documented as of this encounter Care Teams Truck Bracer Relationship Specialty Start Date End Date Zakia Toure MD [address] [place] [address] PCP - General Family Medicine 12/18/18 Preston Trevino FNP [address] [place] [address] Nurse Practitioner Family Medicine 07/30/23 documented as of this encounter
== END ==
LOC: HO.CARD 12:55
PROVIDERS: PCP Internal Medicine; Visit Provider Internal Medicine Cardiovascular Disease
DX: R00.2 Palpitations (principal)
CPT/HCPCS: 93270

== ENCOUNTER → 2024-12-25 12:57 | Outpatient (BNV) | payer MEDICAID, SELFPAY | PROVIDERS: PCP Internal Medicine; Visit Provider Internal Medicine Cardiovascular Disease | DX: I49.3 Ventricular premature depolarization (principal); I49.1 Atrial premature depolarization | CPT/HCPCS: 93272 ==

== ENCOUNTER 2025-03-30 09:19 | Outpatient (AMB) | payer MEDICAID, SELFPAY ==
[2025-03-30 09:36] VITALS: BP 138/72; PULSE 82; BMI 29.0
--- NOTE | 2025-03-30 09:36 | MHC.OFFVIS ---
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: No Allergies No Known Allergies (No Known Allergies*) Allergy (Verified 03/30/25 09:41) Medication List - Last Reconciled 03/30/25 by Reba Calhoun, CLIENT INSIGHTS CONSULTANT-C albuterol sulfate 90 mcg/actuation 2 puffs inhalation Q6H PRN amitriptyline 25 mg PO QAM amitriptyline 10 mg PO BEDTIME atorvastatin 20 mg PO DAILY 90 days carvedilol 6.25 mg PO BID cholecalciferol (vitamin D3) 50 mcg PO DAILY conjugated estrogens (Premarin) 0.625 mg PO DAILY divalproex ER 500 mg PO BID docusate sodium (Colace) 100 mg PO BID fluticasone propionate 110 mcg/actuation (Flovent HFA) 1 puff inhalation BID hydrochlorothiazide 50 mg PO DAILY ibuprofen 800 mg PO TID PRN lisinopril 10 mg PO DAILY melatonin 5 - 10 mg PO BEDTIME PRN oxycodone 5 mg PO Q4H PRN polyvinyl alcohol 1.4% (Artificial Tears (polyvinyl alcohol)) 1 drp ophthalmic (eye) TID-QID sertraline 50 mg PO DAILY topiramate 25 mg PO DAILY witch lea 50% (Preparation H (Witch Lea)) 1 pad topical BID-QID PRN zolpidem 10 mg PO BEDTIME PRN HPI HPI 4 mth f/up-holter: Details: Agnieszka is a 59-year-old female with past medical history of hypertension, heart palpitations who presents for follow-up after recent cardiac event monitor. Today she reports that she will feel brief heart palpitations lasting sec and then resolving. No sustained rapid or irregular rates. No chest discomfort at rest or with activity. No shortness of breath, PND, orthopnea or edema. He reports good activity tolerance. Takes meds as directed. [facility] Medical History Hemorrhoid Cough, unspecified Hemorrhoids with complication Hypertension Surgical History History of hemorrhoidectomy History of partial hysterectomy History of tubal ligation History of bariatric surgery Family History Father HTN (hypertension) Mother Tachycardia Social History Are you a primary rn care manager to a significant other at home: No Do you presently have visiting nurse or other home services: No Alcohol intake: never Comment: pt states tolerable states it is not pain just pressure Patient Tobacco Use Status: Former Tobacco user Tobacco use type: Cigarette Years Smoked: 40 +/- 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, 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 Review of Systems Const All systems reviewed & are unremarkable except as noted in HPI and below ENT Reports dizziness Card Details: brief heart palpitations Denies chest pain, Denies chest pain at rest, Denies chest pain with activity, Denies rapid heart rate, Denies pedal edema, Denies edema, Denies leg edema, Denies lightheadedness, Denies palpitations, Denies dyspnea, Denies dyspnea on exertion and Denies orthopnea Resp Denies cough, Denies dyspnea and Denies dyspnea on exertion GI Denies hematochezia and Denies change in stool character Musc Denies abnormal gait, Denies limited range of motion, Denies muscle cramps, Denies muscle weakness, Denies numbness, Denies radiating pain into limb, Denies stiffness and Denies tingling Neuro Denies abnormal gait, Reports dizziness, Denies numbness and Denies tingling Endo Denies palpitations Physical Exam Vital Signs: Last Vital Signs Pulse 82 03/30/25 09:36 BP 138/72 03/30/25 09:36 BMI result Body Mass Index 29.0 Const General: cooperative, healthy appearing, comfortable and no acute distress Orientation/consciousness: patient oriented x3 Neck Neck: Yes normal visual inspection and Yes no JVD Resp Effort & Inspection: normal respiratory effort Auscultation: clear to auscultation bilaterally, no crackles, no rales, no rhonchi and no wheezes Cardio Rate: regular rate Rhythm: regular rhythm Heart sounds: S1 normal heart sound present, S2 normal heart sound present, no gallops, no murmurs and no rubs Neuro General: patient oriented x3 Extrem General: Yes normal to inspection, No no pedal edema and No calf tenderness Psych Appearance: grossly normal Mental Status: mental status grossly normal Speech and movement: Normal speech and movement present Assessment & Plan Assessment & Plan (1) Palpitations: Code(s): R00.2 - Palpitations Category: Medical Plan: Reports of brief heart palpitations. She underwent colonoscopy this past year and states she was told she had brief atrial flutter during the procedure though we obtained no documentation of this. A cardiac event monitor done 12/25/2024 showed sinus rhythm with average heart rate 69 beats per minute, heart rate range 49 to 120, rare PACs and PVCs, brief atrial tach, 5 beats, symptoms correlated with sinus rhythm or PVC. Test results reviewed with her in detail. Last echocardiogram 11/15/2023 showed EF 69%, no valve abnormalities and no regional wall motion abnormalities. No further testing needed at this time. Instructed to notify this office if she has increasing heart palpitations. Reviewed avoidance of caffeinated beverages, maintain good hydration, get adequate rest, exercise as tolerated. Cardiology follow-up 6 months sooner if needed. (2) Hypertension: Code(s): I10 - Essential (primary) hypertension Category: Medical Plan: Blood pressure goal less than 130/80. Adequately controlled at present. Continue carvedilol, hydrochlorothiazide, lisinopril. Plan I discussed with the patient that her palpitations are likely benign, as the director [place] sales showed normal rhythm with occasional early beats and a brief episode of tachycardia. We talked about managing anxiety through reassurance and monitoring, and I advised her to avoid caffeine to prevent exacerbation of palpitations. We agreed on a follow-up appointment in six months, with the option to return sooner if her symptoms change or worsen. Patient Instructions: - Stay physically active and avoid caffeinated drinks. - Monitor for prolonged palpitations and seek help if they last longer than usual. - Avoid salty foods to prevent fluid retention in the legs. - Follow up with Dr. Singh in six months or sooner if symptoms worsen. Patient was informed and verbally consented to the use of an ambient scribe for clinic note documentation during this visit. Visit time spent on chart review, interview, assessment, orders, documentation. Coding Level of Care Code Est Pt Level 3 (04577) Complex EM visit Add On G2211 Diagnoses Palpitations R00.2 Hypertension I10 Time Spent (min) 24
--- OUTSIDE RECORDS SUMMARY | 2025-03-30 09:44 | XMS_ITS | Encounter Summary ---
Author Organization [employer] Address [address] [facility] [address] [place] [address] Care Team Providers Care Mathematical Engineer Name Role Phone Zakia Toure MD Primary Care Provide r Preston Trevino Unavailable Unavailable Encounter Details Date Type Department Care Team (Late st Contact Info) Description 08/22/2023 Orders Only [facility] [address] [place], [place] [phone] Taina Pettit MD [address] [place], [place] [phone] Encounter for preventive health examination (Primary Dx) [...] Care Team (Late st Contact Info) Description 05/12/2025 2:45 PM EDT Office Visit [facility] [address] [place] [phone] Zakia Toure MD [address] [place] [address] documented as of this encounter Visit Diagnoses Diagnosis Encounter for preventive health examination- Primary documented in this encounter Additional Health Concerns Assessment Noted Time PHQ-9 Depression Total Score: 1 08/16/20 23 9:06 AM EST documented as of this encounter Care Teams Mathematical Engineer Relationship Specialty Start Date End Date Zakia Toure MD [address] [place] [phone] PCP - General Family Medicine 12/18/18 Preston Trevino FNP [address] [place] [phone] Nurse Practitioner Family Medicine 07/30/23 documented as of this encounter
--- OUTSIDE RECORDS SUMMARY | 2025-03-30 09:44 | XMS_ITS | Clinical Summary ---
Author Organization [facility] Address [address] [place] [address] Care Team Providers Care Embedded Linux Engineer Name Role Phone Unavailable Primary Care Provider [...] - 2023-2 5 season) 2024 Influenza Vaccine (#1) 2025 HIB Vaccines Aged Out No longer [...] 5 Years) and At-Risk Patients (6 to 49 Years) Aged Out No longer eligible b ased on patient's age to complete this topic RSV Immunization Patients Un catia 20 months Aged Out No longer eligible b ased on patient's age to complete this topic Varicella Vaccines Aged Out No longer eligible based on patient's age to complete this topic
== END 2025-03-30 10:12 | disposition home or self-care (01) ==
LOC: HO.HCS 09:20
PROVIDERS: PCP Internal Medicine; Visit Provider Nurse Practitioner Family
DX: R00.2 Palpitations (principal); I10 Essential (primary) hypertension
CPT/HCPCS: 99213

== ENCOUNTER → 2025-03-30 09:19 | Outpatient (BNVA) | payer MEDICAID, SELFPAY | PROVIDERS: PCP Internal Medicine; Visit Provider Nurse Practitioner Family | DX: R00.2 Palpitations (principal); I10 Essential (primary) hypertension | CPT/HCPCS: 99212 ==

== ENCOUNTER 2025-07-06 10:19 | Outpatient (REF) | payer MEDICAID, SELFPAY ==
[2025-07-08 20:53] LABS: TS Negative Control Passed; TS Panel A 1; TS Panel B 2; TS Positive Control Passed; TSpotTB Negative (Negative)
== END 2025-07-06 10:20 | disposition home or self-care (01) ==
LOC: HO.HHCL 10:19
PROVIDERS: PCP Internal Medicine; Visit Provider Internal Medicine
DX: Z11.1 Encounter for screening for respiratory tuberculosis (principal)
CPT/HCPCS: 36415; 86481

== ENCOUNTER 2025-08-04 12:16 | Outpatient (REF) | payer MEDICAID, SELFPAY ==
--- OUTSIDE RECORDS SUMMARY | 2025-07-06 08:15 | XMS_ITS | Encounter Summary ---
Author Organization [employer] Address [address] [place] [address] 7[address] [place] [address] Care Team Providers Care Plug Wirer Name Role Phone Zakia Toure MD Primary Care Provide r Preston Trevino Unavailable Unavailable Reason for Referral * Consultation (Routine) - Authorized Specialty Diagnoses / Procedures Referred By Daryl pringle Referred To Contact Gastroenterology Diagnoses Colon cancer screening Gastroesophageal reflux disease with esophagitis, unspecified whether hemorrhage Zakia Toure MD [address] [place] [phone] Phone: tel: fax: [facility] Gastroenterology [address] [place] [address] [address] [place] [address] Phone: tel: fax: Referral ID Status Reason Start Date Expiration Date Visits Requested Visits Authorized [id number] Authorized Specialty Services Required 07/06/2026 6 6 Scheduling Instructions Please refer patient back to [address] Encounter Details Date Type Department Care Team (Late st Contact Info) Description 07/06/2025 9:15 AM EDT Office Visit [facility] MEDICINE [address] [place] [address] [phone] Zakia Toure MD [address] [place] [address] [phone] Encounter for preventive care (Primary Dx); Dietary counseling; Exercise counseling; Bipolar 2 disorder (CMS/HCC) (HCC); Essential hypertension; Migraine without aura, not refractory; S/P bariatric surgery; Colon cancer screening; Gastroesophageal reflux disease with esophagitis, unspecified whether hemorrhage; Seasonal allergies; Vitamin D deficiency; Primary hypertension; Acute pain of right knee; Menopause; Mild persistent asthma, unspecified whether complicated; Encounter for immunization Social History Tobacco Use Types Packs/Day Years Used Date Smoking Tobacco: Some Days Cigarettes Passive Smoke Exposure: Past Smokeless Tobacco: Never Alcohol Use Standard Drinks/Week Comments Never 0 (1 standard drink = 0.6 oz pur e alcohol) Alcohol Answer Date Recorded Frequency of Alcohol Consumption Not on file 07/24/2023 Average Number of Drinks Not on file 023 Frequency of Binge Drinking Not on file 03/2023 Score 0 07/24/2023 Depression Answer Date Recorded Patient Health Questionnaire-9 Score 11 07/06/2025 Patient Health Questionnaire-9 Score 11 07/06/2025 Last PHQ-9: Questionnaire Data Not on file 1 Housing Stability Answer Date Recorded What is your housing situation today? I have anamaria marlow 01/29/[address] you li ve. Do you have problems with any of the following? None of the above 01/29/2025 Food Insecurity Answer Date Recorded Within the past 12 months, y ou worried that your food would run out before you got money to buy more: Never True 01/29/2025 Within the past 12 months,th e food you bought just didn't last and you didn't have enough money to get more: Never True Transportation Answer Date Recorded In the past 12 months, has l ack of transportation kept you from medical appts, meetings, work or from getting things needed for daily living? No 01/29/2025 Utilities Answer Date Recorded In the past 12 months, has t he electric, gas, oil or water company threatened to shut off services in your home? No 01/29/2025 Depression Answer Date Recorded Patient Health Questionnaire-2 Score 3 07/06/2025 Internet Access Answer Date Recorded Internet Access Q1 No 01/29/2025 Internet Access Q2 I do not want or need it 01/15 Comments Unknown Sex and Gender Information Value Date Recorded Sex Assigned at Female 07/17/2022 10:15 AM EDT Legal Sex Female 10:15 AM EDT Gender Identity Female 07/17/2022 10:15 AM EDT Sexual Orientation Don't know 07/17/2022 10 :15 AM EDT documented as of this encounter Last Filed Vital Signs Vital Sign Reading Time Taken Comments Blood Pressure 132/98 07/06/2025 9:22 AM EDT Pulse 72 07/06/2025 9:22 AM EDT Temperature 36.3 C (97.4 F) 07/06/2025 9:22 AM EDT Respiratory Rate 16 07/06/2025 9:22 AM EDT Oxygen Saturation 97% 07/06/2025 9:22 AM EDT Inhaled Oxygen Concentration - - Weight 65.9 kg (145 lb 3.2 oz) 07/06/2025 9:22 A M EDT Height 149.9 cm (4' 11 ) 07/06/2025 9:22 AM EDT Body Mass Index 29.33 07/06/2025 9:22 AM EDT documented in this encounter Functional Status * Over the past 2 weeks, how often have you been bothered by any of the following problems? Question Answer Date of Assessment Author Patient Health Questionnaire-2 Score 3 06/18 9:24 AM EDT Eun Osman MA * Little interest or pleasure in doing things Answer Date of Assessment Author Several days 07/06/2025 9:24 AM EDT Samuel Osman ra, [place] * Feeling down, depressed, or hopeless Answer Date of Assessment Author More than half the days 07/06/2025 9:24 AM EDT Eun Andrade MA * Trouble falling or staying asleep, or sleeping too much Answer Date of Assessment Author Nearly every day 07/06/2025 9:24 AM EDT Linda Osman MA * Feeling tired or having little energy Answer Date of Assessment Author More than half the days 07/06/2025 9:24 AM EDT Eun Andrade MA * Poor appetite or overeating Answer Date of Assessment Author Not at all 07/06/2025 9:24 AM EDT Samuel Osman ra, MA * Feeling bad about yourself - or that you are a failure or have let yourself or your family down Answer Date of Assessment Author Several days 07/06/2025 9:24 AM Samuel Martinez ra, [place] * Trouble concentrating on things, such as reading the newspaper or watching television Answer Date of Assessment Author Several days 07/06/2025 9:24 AM Samuel Martinez ra, [place] * Moving or speaking so slowly that other people could have noticed? Or the opposite - being so fidgety or restless that you have been moving around a lot more than usual. Answer Date of Assessment Author Several days 07/06/2025 9:24 AM Samuel Martinez ra, [place] * Thoughts that you would be better off or hurting yourself in some way Answer Date of Assessment Author Not at all 07/06/2025 9:24 AM Samuel Martinez ra, [place] * Patient Health Questionnaire-9 Score Answer Date of Assessment Author 11 07/06/2025 9:24 AM Samuel Martinez ra, [place] * How difficult have these problems made it for you to do your work, take care of things at home, or get along with other people? Answer Date of Assessment Author Somewhat difficult 07/06/2025 9:24 AM Eun Martinez MA * Over the last 2 weeks, how often have you been bothered by any of the following problems? Question Answer Date of Assessment Author Feeling nervous, anxious, or on edge 2 06/18 9:23 AM Eun Martinez MA Not being able to stop or co ntrol worrying 3 07/06/2025 9:23 AM Eun Martinez MA Worrying too much about diff erent things 2 07/06/2025 9:23 AM Eun Martinez MA Trouble relaxing 1 07/06/2025 9:23 AM Eun Warren MA Being so restless that it is hard to sit still 1 07/06/2025 9:23 AM Eun Martinez MA Becoming easily annoyed or irritable 1 06/18 9:23 AM Eun Martinez MA Feeling afraid as if somethi ng awful might happen 1 07/06/2025 9:23 AM Eun Martinez MA WILL-7 Total Score 11 07/06/2025 9:23 AM EDT Eun Osman MA documented as of this encounter Progress Notes * Zakia Wilhelm MD - 07/06/2025 9:15 AM EDT SUBJECTIVE: Agnieszka Garg is a 59 y.o. year old female who presents for Physical . Occupation:[employer] Lives with:partner Social Hx: Denies drinking EtOH, ocasionally smoking 1 cigarette and yes recreational drug use smokes marijuana at night for sleeping Diet:regular Exercise:sedentary Pap Smear:s/p hysterectomy Mammogram up to date next one shcedule 08/04/25 Colonoscopy:referral done today Hospitalizations/Surgeries: s/p bariatric surgery, hemorrhoidectomy Eye Care:up to date PMHx:on chart Immunizations: Flu vaccine today Acute Concerns: Patient upset today yesterday she lost a family member Social History Social History Narrative Not on file Problem List[1] Bipolar 2 disorder (CMS/HCC) (HCC) Acute pain of right knee Essential hypertension Hemorrhoids Maxillary sinusitis Seasonal allergies Migraine without aura, not refractory Encounter for preventive health examination Colon cancer screening Heartburn Decreased vision of right eye Menopause Mild intermittent asthma Encounter for preventive care Blood in stool Generalized abdominal pain AIN (anal intraepithelial neoplasia) anal canal Tuberculosis screening Constipation Family History[2] Review of Systems Constitutional: Negative. HENT: Negative. Respiratory: Negative. Cardiovascular: Negative. Neurological: Negative. OBJECTIVE: Vitals: 07/06/25 0922 BP: (!) 132/98 BP Location: Left arm Patient Position: Sitting BP Cuff Size: Adult Pulse: 72 Resp: 16 Temp: 97.4 ??F (36.3 ??C) TempSrc: Temporal SpO2: 97% Weight: 145 lb 3.2 oz (65.9 kg) Height: 4' 11 (1.499 m) Physical Exam Constitutional: Appearance: Normal appearance. Cardiovascular: Rate and Rhythm: Normal rate and regular rhythm. Pulmonary: Effort: Pulmonary effort is normal. Breath sounds: Normal breath sounds. Abdominal: General: Abdomen is flat. Palpations: Abdomen is soft. Musculoskeletal: Right lower leg: No edema. Left lower leg: No edema. Neurological: Mental Status: She is alert. Follow Up: Follow up in about 3 months (around 10/06/2025) for chronic conditions . Medications Ordered Prior to Encounter[3] Problem List Items Addressed This Visit Bipolar 2 disorder (CMS/HCC) (HCC) Continue to follow-up with therapist Continue with same medication regimen Relevant Medications divalproex (Depakote ER) 250 MG 24 hr tablet melatonin 5 MG tablet Encounter for preventive care - Primary See HPI Relevant Orders T-SPOT??.TB (Completed) Essential hypertension Today blood pressure elevated patient reports she feels upset and this is likely why her blood pressure is a little elevated, advised to continue with low- sodium diet and see medication regimen and to monitor blood pressure at home if blood pressure continues to be above 140/90 to report back to me Relevant Medications atorvastatin (Lipitor) 20 MG tablet carvedilol (Coreg) 6.25 MG tablet hydroCHLOROthiazide (HYDRODiuril) 50 MG tablet lisinopril 40 MG tablet Migraine without aura, not refractory I advise to avoid migraine triggers like red wine, chocolate, cheese, strong perfumes Relevant Medications carvedilol (Coreg) 6.25 MG tablet divalproex (Depakote ER) 250 MG 24 hr tablet melatonin 5 MG tablet S/P bariatric surgery Relevant Medications Multiple Vitamin (multivitamin) tablet atorvastatin (Lipitor) 20 MG tablet Premarin 0.3 MG tablet Colon cancer screening Relevant Medications Multiple Vitamin (multivitamin) tablet cholecalciferol (D3 Super Strength) 50 MCG (1999 UT) capsule Other Relevant Orders Referral to Gastroenterology GERD (gastroesophageal reflux disease) Relevant Medications Multiple Vitamin (multivitamin) tablet carvedilol (Coreg) 6.25 MG tablet omeprazole (PriLOSEC) [address] capsule Other Relevant Orders Referral to Gastroenterology Seasonal allergies Relevant Medications cetirizine (ZyrTEC) 10 MG tablet Azelastine HCl 137 MCG/SPRAY solution hydrOXYzine HCl (Atarax) 10 MG tablet Acute pain of right knee Relevant Medications cholecalciferol (D3 Super Strength) 50 MCG (1999 UT) capsule lidocaine (Lidoderm) 5 % patch Menopause Relevant Medications Premarin 0.3 MG tablet Other Visit Diagnoses Dietary counseling Relevant Medications atorvastatin (Lipitor) 20 MG tablet Premarin 0.3 MG tablet Exercise counseling Relevant Medications atorvastatin (Lipitor) 20 MG tablet Premarin 0.3 MG tablet Vitamin D deficiency Relevant Medications atorvastatin (Lipitor) 20 MG tablet cholecalciferol (D3 Super Strength) 50 MCG (1999 UT) capsule Premarin 0.3 MG tablet Primary hypertension Relevant Medications carvedilol (Coreg) 6.25 MG tablet hydroCHLOROthiazide (HYDRODiuril) 50 MG tablet lisinopril 40 MG tablet Mild persistent asthma, unspecified whether complicated Relevant Medications albuterol (2.5 MG/3ML) 0.083% nebulizer solution cetirizine (ZyrTEC) 10 MG tablet Azelastine HCl 137 MCG/SPRAY solution hydrOXYzine HCl (Atarax) 10 MG tablet albuterol (Ventolin HFA) 108 (90 Base) MCG/ACT inhaler Encounter for immunization Relevant Orders FLU VACCINE TRIVALENT [id number] (Fluarix) 19 yrs + (Completed) [1] Patient Active Problem List Diagnosis Bipolar 2 disorder (CMS/HCC) (HCC) Acute pain of right knee Essential hypertension Hemorrhoids Maxillary sinusitis Seasonal allergies Migraine without aura, not refractory Encounter for preventive health examination Colon cancer screening Heartburn Decreased vision of right eye Menopause Mild intermittent asthma Encounter for preventive care Blood in stool Generalized abdominal pain AIN (anal intraepithelial neoplasia) anal canal Tuberculosis screening Constipation S/P bariatric surgery GERD (gastroesophageal reflux disease) [2] No family history on file. [3] Current Outpatient Medications on File Prior to Visit Medication Sig Dispense Refill fluticasone (Flonase) 50 MCG/ACT nasal spray INSTILL 1-2 SPRAYS IN EACH NOSTRIL ONCE DAILY NEEDED 48 g 1 Ventolin HFA 108 (90 Base) MCG/ACT inhaler INHALE 2 PUFFS BY MOUTH EVERY 4 TO 6 HOURS NEEDED FORWHEEZING OR SHORTNESS OF BREATH 18 g 2 [DISCONTINUED] zolpidem (Ambien) 10 MG tablet TAKE 1 TABLET BY MOUTH AT BEDTIME NEEDED for SLEEP30 tablet 1 No current facility-administered medications on file prior to visit. documented in this encounter Miscellaneous Notes * Assessment & Plan Note - Zakia Wilhelm MD - 07/06/2025 4:26 PM EDT Associated Problem(s): Mild intermittent asthma Counseling about avoiding asthma triggers and today Albuterol refills done * Assessment & Plan Note - Zakia Wilhelm MD - 07/06/2025 4:26 PM EDT Associated Problem(s): Migraine without aura, not refractory I advise to avoid migraine triggers like red wine, chocolate, cheese, strong perfumes * Assessment & Plan Note - Zakia Wilhelm MD - 07/06/2025 4:25 PM EDT Associated Problem(s): Bipolar 2 disorder (CMS/HCC) (HCC) Continue to follow-up with therapist Continue with same medication regimen * Assessment & Plan Note - Zakia Wilhelm MD - 07/06/2025 4:25 PM EDT Associated Problem(s): Encounter for preventive care See HPI * Assessment & Plan Note - Zakia Wilhelm MD - 07/06/2025 4:24 PM EDT Associated Problem(s): Essential hypertension Today blood pressure elevated patient reports she feels upset and this is likely why her blood pressure is a little elevated, advised to continue with low- sodium diet and see medication regimen and to monitor blood pressure at home if blood pressure continues to be above 140/90 to report back to me documented in this encounter Plan of Treatment Upcoming Encounters Date Type Department Care Team (Late st Contact Info) Description 10/01/2025 9:00 AM EST Office Visit [facility] MEDICINE [address] [place] [phone] Zakia Toure MD [address] [place] [address] Scheduled Referrals Name Type Priority Associated Diagnoses Order Schedule Referral to Gastroenterology Outpatient Referral Routine Colon cancer screening Gastroesophageal reflux disease with esophagitis, unspecified whether hemorrhage Expected: 07/06/2025 (Approximate), Expires: 07/06/2026 documented as of this encounter Procedures Procedure Name Priority Date/Time Associated Diagnosis Comments T-SPOT(R).TB Routine 07/06/2025 10:26 AM EDT Encounter for preventive care documented in this encounter Results * T-SPOT??.TB (07/06/2025 10:26 AM EDT) T Spot TB Negative Negative [facility] Comment:A negative test resu lt does not exclude the possibilityof exposure to or infection with Mycobacteriumtuberculosis (M. tuberculosis). Patients with recentexposure to TB infected individuals exhibiting anegative T-SPOT.TB result should be considered forretesting within 6 weeks or if other relevant clinicalsymptoms indicate. Results from T-SPOT.TB testing mustbe used in conjunction with each individual'sepidemiological history, current medical status,and results of other diagnostic evaluations.The T-SPOT.TB test is qualitative and results arereported as positive, borderline, or negative, giventhat the test controls perform as expected. In linewith the Centers for Disease Control and Prevention's2010 recommendation to report quantitative measurementsalongside the qualitative result, the laboratoryprovides spot counts for informational purposes only.The T-SPOT.TB test should not be interpreted as aquantitative test. TS PANEL A 1 [facility] TS PANEL B 2 [facility] Negative Control Passed [facility] Positive Control Passed [facility] Comment:For additional infor celestina, please refer tohttp://education.[employer]/faq/TNU416(This link is being provided for informational/educational purposes only.)THIS TEST WAS PERFORMED AT:[facility] [id number] [place] [id number] MACIEL MD,PHD 07/06/2025 10:2 6 AM EDT 07/06/2025 12:59 PM EDT Zakia Wilhelm MD LAB BLOOD ORDERABLES Final Result [facility] [address] [place] [phone] [phone] documented in this encounter Visit Diagnoses Diagnosis Encounter for preventive care- Primary Dietary counseling Dietary surveillance and counseling Exercise counseling Bipolar 2 disorder (CMS/HCC) (HCC) Other bipolar disorders Essential hypertension Unspecified essential hypertension Migraine without aura, not refractory S/P bariatric surgery Colon cancer screening Special screening for malignant neoplasms, colon Gastroesophageal reflux disease with esophagitis, unspecified whether hemorrhage Seasonal allergies Allergic rhinitis, cause unspecified Vitamin D deficiency Primary hypertension Unspecified essential hypertension Acute pain of right knee Menopause Symptomatic menopausal or female climacteric states Mild persistent asthma, unspecified whether complicated Encounter for immunization documented in this encounter Additional Health Concerns Assessment Noted Time PHQ-9 Depression Total Score: 11 025 9:24 AM EDT documented as of this encounter Care Teams Plug Wirer Relationship Specialty Start Date End Date Zakia Toure MD [address] [place] [address] PCP - General Family Medicine 12/18/18 Preston Trevino FNP [address] [place] [address] Nurse Practitioner Family Medicine 07/30/23 documented as of this encounter
--- OUTSIDE RECORDS SUMMARY | 2025-08-05 03:15 | XMS_ITS | Clinical Summary ---
Author Organization [facility] ity Address [address] [place] [address] Care Team Providers Care Compressed Gas Plant Worker Name Role Phone Unavailable Primary Care Provider [...] 2016 Zoster Vaccines (1 of 2) 2016 Depression Screening 09/17/2024 COVID-19 Vaccine (1 - 2024-2 6 season) 2025 Influenza Vaccine (#1) 2025 RSV Immunization Adult Patie nts (1 - 1-dose 75+ series) 2041 HIB Vaccines Aged Out No longer eligi [...]
--- OUTSIDE RECORDS SUMMARY | 2025-08-05 03:16 | XMS_ITS | Encounter Summary ---
Author Organization [employer] Address [address] [place] [address] Care Team Providers Care Pocketbook Maker Name Role Phone Zakia Toure MD Primary Care Provide r Preston Trevino Unavailable Unavailable Encounter Details Date Type Department Care Team (Late st Contact Info) Description 04/14/2025 Orders Only [facility] PEDS [address] [place] [address] Provider, MD Faisal Social History Tobacco Use Types Packs/Day Years [...] Recorded Patient Health Questionnaire-2 Score 2 09/18/2024 Internet Access Answer Date Recorded Internet Access [...] Description 10/01/2025 9:00 AM EST Office Visit [facility] MEDICINE [address] [place] [phone] Zakia Toure MD [address] [place] [phone] documented as of this encounter Procedures Procedure Name Priority Date/Time Associated Diagnosis Comments COLONOSCOPY Routine 08/19/2024 9:48 AM EST documented in this encounter Results * Hm Colonoscopy (08/19/2024 9:48 AM EST) Historical Provider HEALTH MAINTENANCE Final Result documented in this encounter Visit Diagnoses Not on filedocumented in this encounter Additional Health Concerns Assessment Noted Time PHQ-9 Depression Total Score: 8 09/18/19 25 11:57 AM EST documented as of this encounter Care Teams Pocketbook Maker Relationship Specialty Start Date End Date Zakia Toure MD [address] [place] [phone] PCP - General Family Medicine 12/18/18 Preston Trevino FNP [address] [place] [address] Nurse Practitioner Family Medicine 07/30/23 documented as of this encounter
--- OUTSIDE RECORDS SUMMARY | 2025-08-05 03:16 | XMS_ITS | Encounter Summary ---
Author Organization [employer] Address [address] [facility] [address] [place] [address] Care Team Providers Care Wood Setter Name Role Phone Zakia Toure MD Primary Care Provide r Preston Trevino Unavailable Unavailable Reason for Visit * Reason Comments Med Refill Encounter Details Date Type Department Care Team ([facility] st Contact Info) Description 02/26/2024 Refill [facility] MEDICINE [address] [place] [address] Preston Trevino FNP Social History Tobacco Use [...] Description 10/01/2025 9:00 AM EST Office Visit [facility] MEDICINE [address] [place] [phone] Zakia Toure MD [address] [place] [phone] documented as of this encounter Visit Diagnoses Not on filedocumented in this encounter Additional Health Concerns Assessment Noted Time PHQ-9 Depression Total Score: 2 02/05/20 24 9:24 AM EDT documented as of this encounter Care Teams Wood Setter Relationship Specialty Start Date End Date Zakia Toure MD [address] [place] [phone] PCP - General Family Medicine 12/18/18 Preston Trevino FNP [address] [place] [phone] Nurse Practitioner Family Medicine 07/30/23 documented as of this encounter
--- OUTSIDE RECORDS SUMMARY | 2025-08-05 03:16 | XMS_ITS | Encounter Summary ---
Author Organization [employer] Address [address] [facility] [address] [place] [address] Care Team Providers Care Steam Cleaner Name Role Phone Zakia Toure MD Primary Care Provide r Preston Trevino Unavailable Unavailable Encounter Details Date Type Department Care Team (Late st Contact Info) Description 08/22/2023 Orders Only [facility] MEDICINE [address] [place], [place] [phone] Taina Pettit MD [address] [place], [place] [phone] Encounter for preventive health examination (Primary Dx) [...] Description 10/01/2025 9:00 AM EST Office Visit [facility] MEDICINE [address] [place] [address] Zakia Toure MD [address] [place] [address] documented as of this encounter Visit Diagnoses Diagnosis Encounter for preventive health examination- Primary documented in this encounter Additional Health Concerns Assessment Noted Time PHQ-9 Depression Total Score: 1 08/16/20 23 9:06 AM EST documented as of this encounter Care Teams Steam Cleaner Relationship Specialty Start Date End Date Zakia Toure MD [address] [place] [phone] PCP - General Family Medicine 12/18/18 Preston Trevino FNP [address] [place] [address] Nurse Practitioner Family Medicine 07/30/23 documented as of this encounter
--- OUTSIDE RECORDS SUMMARY | 2025-08-05 03:16 | XMS_ITS | Clinical Summary ---
Author Organization [employer] Address [address] [facility] [facility] [address] [place] [address] Care Team Providers Care Printing Gray Cloth Tender Name Role Phone Zakia Toure MD Primary Care Provide r Preston Trevino Unavailable Unavailable Allergies No known active allergies Medications fluticasone (Flonase) 50 MCG/ACT nasal sprayIndications :Mild intermittent asthma, unspecified whether complicated INSTILL 1-2 SPRAYS IN EACH NOSTRIL ONCE DAILY NEEDED 48 g 1 07/09/20 24 Active Ventolin HFA 108 (90 Base) MCG/ACT inhalerIndicatio ns:Mild intermittent asthma, unspecified whether complicated INHALE 2 PUFFS BY MOUTH EVERY 4 TO 6 HOURS NEEDED FOR WHEEZING OR SHORTNESS OF BREATH 18 g 2 06/29/20 25 Active Multiple Vitamin (multivitamin) tabletIndication s:S/P bariatric surgery Take 1 tablet by mouth Once per day. 30 tablet 2 07/06/20 25 Active albuterol (2.5 MG/3ML) 0.083% nebulizer solutionIndicati ons:Mild persistent asthma, unspecified whether complicated USE 1 AMPULE USING A NEBULIZER THREE TIMES DAILY 90 mL 3 07/06/20 25 Active atorvastatin (Lipitor) 20 MG tabletIndication s:Essential hypertension Take 1 tablet (20 mg) by mouth Once per day. 90 tablet 1 07/06/20 25 Active carvedilol (Coreg) 6.25 MG tabletIndication s:Essential hypertension Take 1 tablet (6.25 mg) by mouth with breakfast and with evening meal. 180 tablet 3 07/06/20 25 Active cetirizine (ZyrTEC) 10 MG tabletIndication s:Seasonal allergies Take 1 tablet (10 mg) by mouth Once per day. 90 tablet 1 07/06/20 25 Active Azelastine HCl 137 MCG/SPRAY solutionIndicati ons:Seasonal allergies Administer 1 spray (137 mcg) into affected nostril(s) Once per day. 30 mL 1 07/06/20 25 Active cholecalciferol (D3 Super Strength) 50 MCG (2000 UT) capsuleIndicatio ns:Vitamin D deficiency Take 1 capsule (50 mcg) by mouth Once per day. 90 capsule 1 07/06/20 25 Active divalproex (Depakote ER) 250 MG 24 hr tabletIndication s:Bipolar 2 disorder (CMS/HCC) (HCC) Take 3 tablets (750 mg) by mouth 2 times daily. 540 tablet 3 07/06/20 25 Active hydroCHLOROthiaz lisa (HYDRODiuril) 50 MG tabletIndication s:Primary hypertension Take 1 tablet (50 mg) by mouth Once per day. 90 tablet 07/06/20 25 Active hydrOXYzine HCl (Atarax) 10 MG tablet Take 1-2 tablets (10-20 mg) by mouth every 6 (six) hours if needed for anxiety. 60 tablet 11 07/06/20 25 Active lidocaine (Lidoderm) 5 % patchIndications :Acute pain of right knee Apply 1 patch topically Once per day. Remove & discard patch within 12 hours or as directed by MD. 30 patch 1 07/06/20 25 Active lisinopril 40 MG tabletIndication s:Primary hypertension Take 1 tablet (40 mg) by mouth Once per day. 90 tablet 3 07/06/20 25 Active melatonin 5 MG tabletIndication s:Bipolar 2 disorder (CMS/HCC) (HCC) Take 1 tablet (5 mg) by mouth at bedtime. 180 tablet 3 07/06/20 25 Active omeprazole (PriLOSEC) [address] capsuleIndicatio ns:Gastroesophag eal reflux disease with esophagitis, unspecified whether hemorrhage Take 1 capsule (20 mg) by mouth before breakfast and before evening meal. Do not crush or chew. 180 capsule 1 07/06/20 25 Active Premarin 0.3 MG tabletIndication s:Menopause Take 1 tablet (0.3 mg) by mouth in the morning. 30 tablet 2 07/06/20 25 Active albuterol (Ventolin HFA) 108 (90 Base) MCG/ACT inhalerIndicatio ns:Mild persistent asthma, unspecified whether complicated Inhale 2 puffs every 4 (four) hours if needed for wheezing or shortness of breath. 18 g 3 07/06/20 25 Active zolpidem (Ambien) 10 MG tabletIndication s:Bipolar 2 disorder (CMS/HCC) ([facility]) TAKE 1 TABLET BY MOUTH EVERY DAY AT BEDTIME NEEDED FOR SLEEP 30 tablet 1 07/10/20 25 Active zolpidem (Ambien) 10 MG tabletIndication s:Bipolar 2 disorder (CMS/HCC) ([facility]) TAKE 1 TABLET BY MOUTH AT BEDTIME NEEDED for SLEEP 30 tablet 1 02/24/20 25 025 Discontinued Active Problems Problem Noted Date Diagnosed Date S/P bariatric surgery 07/06/2025 GERD (gastroesophageal reflux disease) Constipation 01/29/2025 AIN (anal intraepithelial neoplasia) anal canal 09/18/2024 [...] for preventive care 05/07/2024 Assessment & Plan (07/06/2025 4:25 PM EDT): See HPI Assessment & Plan (05/07/2024 12:43 PM EDT): [...] appointment Menopause 10/25/2023 Mild intermittent asthma 10/25/2023 Assessment & Plan (07/06/2025 4:26 PM EDT): Counseling about avoiding asthma triggers and today Albuterol refills done Decreased vision of right eye 07/24/2023 Migraine without aura, not refractory 05/04/2023 Assessment & Plan (07/06/2025 4:26 PM EDT): I advise to avoid migraine triggers like red wine, chocolate, cheese, strong perfumes Encounter for preventive health examination 04/17 Assessment [...] 01/29/2023 Essential hypertension 01/29/2023 Assessment & Plan (07/06/2025 4:24 PM EDT): Today blood pressure elevated patient reports she feels upset and this is likely why her blood pressure is a little elevated, advised to continue with low-sodium diet and see medication regimen and to monitor blood pressure at home if blood pressure continues to be above 140/90 to report back to me Assessment & Plan (01/29/2025 4:39 PM EDT): I advised: - Aerobic exercise to reduce [...] consulting health care provider Assessment & Plan (09/18/2024 4:16 PM EST): [...] 01/29/2023 Seasonal allergies 01/29/2023 Bipolar 2 disorder ([facility]) 10/12/2022 Assessment & Plan (07/06/2025 4:25 PM EDT): Continue to follow-up with therapist Continue with same medication regimen Assessment & Plan (05/07/2024 12:42 PM EDT): [...] and she could be referred to new [facility] Psychiatric prescriber if needed. Any issues or concerns, contact [facility]. All her questions were answered. I [...] would be retiring. May request records from [facility] to facilitate intake with new outpatient [...] Encounters Date Type Department Care Team Description 07/17/2025 Telephone [facility] [address] [place] [address] Zakia Toure MD BAYLEE RECALL 07/10/2025 Refill [facility] [address] [place] [address] [place], [place], [facility] Bipolar 2 disorder (CMS/HCC) (HCC) 07/06/2025 9:15 AM EDT Office Visit [facility] [address] [place] [address] Zakia Toure MD Encounter for preventive care (Primary Dx); Dietary counseling; Exercise counseling; Bipolar 2 disorder (CMS/HCC) (HCC); Essential hypertension; Migraine without aura, not refractory; S/P bariatric surgery; Colon cancer screening; Gastroesophageal reflux disease with esophagitis, unspecified whether hemorrhage; Seasonal allergies; Vitamin D deficiency; Primary hypertension; Acute pain of right knee; Menopause; Mild persistent asthma, unspecified whether complicated; Encounter for immunization 07/06/2025 Travel 07/03/2025 Telephone [facility] [address] [place] [address] Zakia Toure MD Chart Prep 07/02/2025 Travel 06/27/2025 Refill [facility] [address] [place] [address] Zakia Toure MD Mild intermittent asthma, unspecified whether complicated 06/25/2025 Patient Outreach [facility] [address] [place] [address] Zakia Toure MD Pre-visit Planning ([facility] screening completed on 03/01/2025) 06/20/2025 Refill [facility] [address] [place] [address] Zakia Toure MD Mild intermittent asthma, unspecified whether complicated 06/17/2025 Refill [facility] [address] [place] [address] Zakia Toure MD Essential hypertension; Bipolar 2 disorder (CMS/HCC) (HCC) 06/03/2025 Refill [facility] [address] [place] [address] Zakia Toure MD Essential hypertension; Bipolar 2 disorder (CMS/HCC); Primary hypertension 05/07/2025 Telephone [facility] [address] [place] [address] Zakia Toure MD pcp out 05/05/2025 Patient Outreach [facility] [address] [place] [address] Zakia Toure MD Pre-visit Planning ([facility] unable to reach LVM) from Last 3 Months Immunizations Immunization Administration Dates Next Due Hep B, adult 12/08/2021,09/19/2021,08/18/2021 INFLUENZA INJECTABLE QUADRIV ALANT CCIIV4 MDCK Multi-dose vial 07/02/2019 INFLUENZA VACCINE QUADRIVALE NT RECOMBINANT PRESERVATIVE FREE RIV4 06/26/2021 Influenza Injectable Quadriv alant Preservative Free IIV4 MDCK 07/01/2020,05/28/2017 Influenza injectable quadriv alent preservative free 07/24/2023,08/09/2022,07/30/2019 Influenza, seasonal, injecta ble, preservative free 07/06/2025,09/18/2024 Pfizer Covid-19 Vaccine 12+ 09/18/2024, Pneumococcal Conjugate PCV 20 08/09/2022 Tdap 04/21/2020 Zoster, Recombinant 12/27/2023,10/25/2023 Social History Tobacco Use Types Packs/Day Years Used Date Smoking Tobacco: Some Days Cigarettes Passive Smoke Exposure: Past Smokeless Tobacco: Never Tobacco Cessation:Ready to Q [...] your housing situation today? I have anamaria kash[place] 01/29/[address] you li [...] Mass Index 29.33 07/06/2025 9:22 AM EDT Plan of Treatment Upcoming Encounters Date Type Department Care Team (Late st Contact Info) Description 10/01/2025 9:00 AM EST Office Visit [facility] [address] [place] [address] Zakia Toure MD [address] [place] [address] Health Maintenance Due Date Last Done Comments CT Colonography 1966 FIT 1966 HIV Screening 1965 Sigmoidoscopy 1965 Pap Smear 1987 HPV/Cotest 1996 RSV Patients and Patients Aged 60 years or older (1 - Risk 50-74 years 1-dose series) 2016 FOBT 05/14/2024 05/14/2023, 05/14/2023 Colonoscopy 02/17/2025 08/19/2024, 08/19/2024 Colorectal Cancer Screening 02/17/2025 COVID-19 Vaccine ( season) 2025 09/18/2024, 10/25/2023, 08/09/2022, Additional history exists Mammogram 07/31/2025 07/31/2024, 10/2022, 07/26/2022, Additional history exists Alcohol/Substance Use Screening 09/18/2025 09/18/2024 Depression Monitoring 01/04/2026 07/06/2025, 025 SDOH Screening 01/29/2026 01/29/2025 FIT DNA/Cologuard 05/14/2026 05/14/2023, 05/14/2023 Disability Screening 07/02/2026 07/02/2025 Tobacco Screening 07/06/2026 07/06/2025 Lipid Panel 09/19/2029 09/19/2024, 04/18, 05/04/2023, Additional history exists DTaP/Tdap/Td Vaccines (3 - Td or Tdap) 04/21/2030 04/21/2020, 02/15/2014 Hepatitis B Vaccines Completed 12/08/2021, 09/19/2021, 08/18/2021 Pneumococcal Vaccine: 50+ Years Completed 08/09/2022 Hepatitis C Screening Completed 05/04/2023 Zoster Vaccines Completed 12/27/2023, 10/25/2023 Influenza Vaccine Completed 07/06/2025, , 07/24/2023, Additional history exists Cervical Cancer Screening Discontinued [...] 10:26 AM EDT Encounter for preventive care LIPID PANEL, STANDARD Routine 09/19/2024 9:26 AM EST HM COLONOSCOPY Routine 08/19/2024 10:00 AM EST BI MAMMOGRAM SCREENING TOMOSYNTHESIS BILATERAL Routine 07/31/2024 12:35 PM EST LAB COLOGUARD COLON CANCER SCREEN Routine 05/14/2023 6:52 AM EDT Colon cancer screening HEPATITIS PANEL, GENERAL Routine 05/04/2023 11:28 AM EDT Encounter for preventive health examination from Last 3 Months or Most Recently Relevant to Health Maintenance Results * T-SPOT??.TB (07/06/2025 10:26 AM EDT) [facility] T Spot TB Negative Negative [facility] Comment:A negative test resu lt [...] as aquantitative test. TS PANEL A 1 [facility] TS PANEL B 2 [facility] Negative Control Passed [facility] Positive Control Passed [facility] Comment:For additional infor mation, please refer tohttp://education.Strava/faq/DBN138(This link is being provided for informational/educational purposes only.)THIS TEST WAS PERFORMED AT:[facility] [id number] [place] [address]RGATOBRRISA MACIEL MD,PHD 07/06/2025 10:2 6 AM EDT 07/06/2025 12:59 PM EDT Zakia Wilhelm MD LAB BLOOD ORDERABLES Final Result [facility] [address] [place] [phone] * (ABNORMAL) Lipid Panel, Standard (09/19/2024 9:26 AM EST) Triglycerides 167(H) <150 mg/dL [facility] Comment:Desirable Triglyceri de: less than 150 mg/dLBorderline High Triglyceride 150-199 mg/dLHigh Triglyceride: 200-499 mg/dLVery High Triglyceride: greater than or equal to 5OO mg/dL Cholesterol 134 <200 mg/dL [facility] Comment:Desirable Cholestero l: less than 200 mg/dLBorderline High Cholesterol: 200-239 mg/dLHigh Cholesterol: greater than 239 mg/dL LDL Cholesterol Calculated 39 <100 mg/dL [facility] Comment:Desirable LDL: less than 100 mg/dLNear Optimal/Above Optimal LDL: 110- 129 mg/dLBorderline High LDL: 130-159 mg/dLHigh LDL: 160-189 mg/dLVery High LDL: greater than or equal to 190 mg/dL HDL Cholesterol 62 >40 mg/dL [facility] Comment:Desirable HDL: great er than 40 mg/dL Note: This HDL assay may give artificially low results in patients with liver disease. 09/19/2024 9:26 AM EST 09/19/2024 11:03 AM EST us Generic External Data Provider LAB BLOOD ORDERAB LES Final Result [facility] [address] [place] [phone] [phone] * (ABNORMAL) Hm Colonoscopy (08/19/2024 10:00 AM EST) Colonoscopy Abnormal(A ) Normal Narrative Day Ruiz - 08/19/2024 10:00 AM EST 3 advanced adenomas by size. No dysplasia. All removed with EMR. 4 nonadvanced adenomas. Repeat in 1yr ( see pathology scanned in director paid media) Historical Provider HEALTH MAINTENANCE Edited Result - Final * BI Mammogram Screening Tomosynthesis Bilateral (07/31/2024 12:35 PM EST) Anatomical Region Laterality Modality Breast Bilateral Mammography 07/31/2024 12:3 5 PM EST Narrative 08/08/2024 12:50 PM EST [facility] [address] [place] [address] Mammography Report Signed Patient: Agnieszka Garg MR#: [id number] : 1965 Acct:[id number] Age/Sex: 58 / F ADM Date: 07/31/24 Loc: HO.MAMMO Attending Dr: Zakia Wilhelm MD Ordering Physician: Zakia Toure MD Results: 2Benign Findings Date of Service: 07/31/24 Follow Up: 1 Year From Orig inal Mammogram Procedure(s): MM tomosynthesis screening BI Accession Number(s): [id number] cc: Zakia Toure MD EXAMINATION: MM SCREENING [...] by: Patti Ham DO 08/08/2024 12:47 PM [facility] Dictated By: Patti Ham DO Signed By: <Electronically signed by Patti Ham DO in OV> 08/08/24 1247 DD/ 1235 TD/TT: 07/31/24 1252 Auto Radiator Mechanic: Procedure Note Donotuseinterpreter, Image - 08/08/2024 [facility] [address] [place] [address] [place] [address] Mammography Report Signed Patient: Agnieszka Garg EMR#: [id number] : 1965Acct:[id number] Age/Sex: 58 / FADM Date: 07/31/24 Loc: HO.MAMMO Attending Dr: Zakia Wilhelm MD Ordering Physician: Zakia Toure MDResults: 2Benign Findings Date of Service: 07/31/24Follow Up: 1 Year From Orig inal Mammogram Procedure(s): MM tomosynthesis screening BI Accession Number(s): [id number] cc: Zakia Toure MD EXAMINATION: MM SCREENING [...] by: Patti Ham DO 08/08/2024 12:47 PM [facility] Dictated By: Patti Ham DO Signed By: <Electronically signed by Patti Ham DO in OV> 08/08/24 1247 DD/ 1235 TD/TT: 07/31/24 1252 Auto Radiator Mechanic: us Zakia Wilhelm MD IMG BI PROCEDURES Fin al Result * Cologuard?? colon cancer screening (05/14/2023 6:52 AM EDT) Cologuard Result Negative Negative 05/19/20 10:23 AM EDT [facility] (CLIA #:[id number]) Comment: NEGATIVE TEST RESULT. A negative Cologuard result indicates a low likelihood that a colorectal cancer (CRC) or advanced adenoma (adenomatous polyps with more advanced pre-malignant features) is present. The chance that a person with a negative Cologuard test has a colorectal cancer is less than 1 in 1500 (negative predictive value >99.9%) or has an advanced adenoma is less than 5.3% (negative predictive value 94.7%). These data are based on a prospective cross-sectional study of 10,000 individuals at average risk for colorectal cancer who were screened with both Cologuard and colonoscopy. (Norm Bashir al, N Engl J Med 2014;370(14):6360-2501) The normal value (reference range) for this assay is negative. COLOGUARD RE-SCREENING RECOMMENDATION: Periodic colorectal cancer screening is an important part of preventive healthcare for asymptomatic individuals at average risk for colorectal cancer. Following a negative Cologuard result, the [place] Cancer Society and U.S. Multi-Society Task Force screening guidelines recommend a Cologuard re-screening interval of 3 years. References: [place] [employer] Guideline for Colorectal Cancer Screening: https://www.cancer.org/cancer/htaig-jjmgpp-ivhrwq/oakrxmuoq-osstherml-ihuwptk/ac s-rec ommendations.html.; Hema DK, Jaycob MUIR, Cong VergaraK, Colorectal Cancer Screening: Recommendations for Physicians and Patients from the U.S. Multi-Society Task Force on Colorectal Cancer Screening , Am J Gastroenterology 2017; 112:7099-4737. TEST DESCRIPTION: Composite algorithmic analysis of stool DNA-biomarkers with hemoglobin immunoassay. Quantitative values of individual biomarkers are not [...] (Norm Bashir al, N Engl J Med 2014;370(14):2820-4394.) Cologuard may produce a false negative or false positive result (no colorectal cancer or precancerous polyp present at colonoscopy follow up). A negative Cologuard test result does not guarantee the absence of CRC or advanced adenoma (pre-cancer). The current Cologuard screening interval is every 3 years. ([place] Cancer Society and U.S. Multi-Society Task Force). Cologuard performance data in a 10,000 patient pivotal study using colonoscopy as the reference method can be accessed at the following location: www.[employer] Live [employer].com/results. Additional description of the Cologuard test process, warnings and precautions can be found at www.cologuard.com. Stool specimen (specimen) 05/14/2023 6:52 AM EDT 05/15/2023 9:35 PM EDT us Zakia Wilhelm MD LAB MOLECULAR DIAGNOS TICS ORDERABLES Final Result [facility] (CLIA #:[id number]) [place] [address], * Hepatitis A,B,C Profile (05/04/2023 11:28 AM EDT) Hepatitis A IgM Nonreactive Nonreactive [facility] Comment:IgM antibodies to BURTON V not detected; does not exclude earlyacute or recovered HAV infection. ~Hepatitis B Surface Antibody REACTIVE Nonreactive [facility] Comment:REACTIVE: > 11.99 mI U/mL Hepatitis B Core Antibody Nonreactive Nonreactive [facility] Hepatitis C Antibody Nonreactive Nonreactive [facility] Comment:Antibodies to HCV no t detected; does not exclude early acuteHCV infection. Hepatitis B Surface Ag Negative Negative [facility] Blood Venous blood specimen / Unknown 05/04/2023 11:28 AM EDT 05/04/2023 1:00 PM EDT us Zakia Wilhelm MD LAB BLOOD ORDERABLES Final Result [facility] [address] [place] [phone] [phone] from Last 3 Months or Most Recently Relevant to Health Maintenance Insurance [address] [place] [address] C3 Care Teams Printing Gray Cloth Tender Relationship Specialty Start Date End Date Zakia Toure MD [address] [place] [address] PCP - General Family Medicine 12/18/18 Preston Trevino FNP [address] [place] [address] Nurse Practitioner Family Medicine 07/30/23
--- OUTSIDE RECORDS SUMMARY | 2025-08-05 03:16 | XMS_ITS | Encounter Summary ---
Author Organization [employer] Address [address] [place] [address] [address] [place] [address] Care Team Providers Care Environmental Studies Professor Name Role Phone Zakia Toure MD Primary Care Provide r Preston Trevino Unavailable Unavailable Encounter Details Date Type Department Care Team (Late st Contact Info) Description 09/27/2022 Orders Only [facility] [address] [place] [phone] Chanelle Arteaga LPN Social History Tobacco Use [...] Description 10/01/2025 9:00 AM EST Office Visit [facility] [address] [place] [phone] Zakia Toure MD [address] [place] [phone] documented as of this encounter Visit Diagnoses Not on filedocumented in this encounter Care Teams Environmental Studies Professor Relationship Specialty Start Date End Date Zakia Toure MD [address] [place] [phone] PCP - General Family Medicine 12/18/18 Preston Trevino FNP [address] [place] [address] Nurse Practitioner Family Medicine 07/30/23 documented as of this encounter
--- OUTSIDE RECORDS SUMMARY | 2025-08-05 03:16 | XMS_ITS | Encounter Summary ---
Author Organization [employer] Address [address] [place] [address] Care Team Providers Care Boil Off Machine Operator Cloth Name Role Phone Zakia Toure MD Primary Care Provide r Preston Trevino Unavailable Unavailable Encounter Details Date Type Department Care Team (Late st Contact Info) Description 02/03/2025 Orders Only [facility] [address] [place] [address] Provider, MD Faisal Social History Tobacco Use [...] Description 10/01/2025 9:00 AM EST Office Visit [facility] [address] [place] [address] Zakia Toure MD [address] [place], [place] [phone] documented as of this encounter Procedures Procedure Name Priority Date/Time Associated Diagnosis Comments COLONOSCOPY Routine 08/19/2024 10:00 AM EST documented in this encounter Results * (ABNORMAL) Colonoscopy (08/19/2024 10:00 AM EST) Colonoscopy Abnormal(A ) Normal Narrative Day Ruiz - 08/19/2024 10:00 AM EST 3 advanced adenomas by size. No dysplasia. All removed with EMR. 4 nonadvanced adenomas. Repeat in 1yr ( see pathology scanned in digital media manager) us Historical Provider HEALTH MAINTENANCE Edited Result - Final documented in this encounter Visit Diagnoses Not on filedocumented in this encounter Additional Health Concerns Assessment Noted Time PHQ-9 Depression Total Score: 8 09/18/19 25 11:57 AM EST documented as of this encounter Care Teams Boil Off Machine Operator Cloth Relationship Specialty Start Date End Date Zakia Toure MD [address] [place] [address] PCP - General Family Medicine 12/18/18 Preston Trevino FNP [address] [place] [address] Nurse Practitioner Family Medicine 07/30/23 documented as of this encounter
--- OUTSIDE RECORDS SUMMARY | 2025-08-05 03:17 | XMS_ITS | Encounter Summary ---
Author Organization [employer] Address [address] [place] [address] [address] [place] [address] Care Team Providers Care Fruit And Vegetable Packer Name Role Phone Zakia Toure MD Primary Care Provide r Preston Trevino Unavailable Unavailable Reason for Visit * Reason Comments Med Refill Encounter Details Date Type Department Care Team (Late Contact Info) Description 04/19/2023 Refill [facility] [address] [place] [address] [phone] Zakia Toure MD [address] [place] [address] [phone] Seasonal allergies Social History Tobacco Use Types [...] Encounters Date Type Department Care Team (Late Contact Info) Description 10/01/2025 9:00 AM EST Office Visit [facility] [address] [place] [address] [phone] Zakia Torue MD [address] [place] [address] [phone] documented as of this encounter Visit Diagnoses Diagnosis Seasonal allergies Allergic rhinitis, cause unspecified documented in this encounter Additional Health Concerns Assessment Noted Time PHQ-9 Depression Total Score: 0 02/14/20 23 2:17 PM EDT documented as of this encounter Care Teams Fruit And Vegetable Packer Relationship Specialty Start Date End Date Zakia Toure MD [address] [place] [address] PCP - General Family Medicine 12/18/18 Preston Trevino FNP [address] [place] [address] Nurse Practitioner Family Medicine 07/30/23 documented as of this encounter
== END 2025-08-04 12:17 | disposition home or self-care (01) ==
LOC: HO.MAMMO 12:16
PROVIDERS: PCP Internal Medicine; Visit Provider Internal Medicine
DX: Z12.31 Encounter for screening mammogram for malignant neoplasm of breast (principal)
CPT/HCPCS: 77063; 77067

== ENCOUNTER → 2025-08-04 12:30 | Outpatient (BNV) | payer MEDICAID, SELFPAY | PROVIDERS: PCP Internal Medicine; Visit Provider Internal Medicine | DX: Z12.31 Encounter for screening mammogram for malignant neoplasm of breast (principal) | CPT/HCPCS: 77063; 77067 ==